=== PATIENT | female | born 1945 | race Caucasian/White ===

== ENCOUNTER 2024-01-20 11:48 | Inpatient (IN) ==
[2024-01-20 12:37] LABS: HCO3 VBG 27 mmol/L; Oxygen Saturation VBG < 60.0 %; PCO2 VBG 48 mmHg (38-50); PO2 VBG 21 mmHg; pH VBG 7.36 (7.36-7.41)
--- NOTE | 2024-01-20 12:48 | XRay Report ---
XR chest 1V portable CLINICAL HISTORY: Sepsis TECHNIQUE: Single frontal radiograph of the chest was obtained. Comparison: None available at the time of this dictation. FINDINGS: No lines and tubes are seen. The cardiomediastinal silhouette is normal. The lungs are clear. No evid ence of pleural effusion or pneumothorax. IMPRESSION: No acute chest disease. ACT 112: Negative or not required by law. Electronically signed by: Toby Marcial M.D. 01/20/2024 12:46 PM
--- NOTE | 2024-01-20 12:51 | XRay Report ---
SINGLE VIEW PELVIS CLINICAL HISTORY: Fall. Left hip pain. FINDINGS: An AP, portable, supine view of the pelvis is obtained. No prior studies are available for comparison at the time of dictation. The skeletal structures are osteopenic. No acute fracture is esteban tanesha identified. There is an age indeterminant impacted subcapital fracture of the left proximal femu r which is transfixed by 3 cortical lag screws. The right proximal femur and bony pelvis appear intac t. Mild arthritic change and joint space narrowing is seen in the hips. Sclerotic change is seen in t he sacroiliac joints and pubic symphysis. The overlying soft tissues are normal as visualized. IMPRESSION: 1. No acute fracture is clearly identified. 2. Age indeterminant impacted subcapital fracture of the left proximal femur status post internal fix ation. Correlate clinically. Electronically signed by: Justino Juarez M.D. 01/20/2024 12:49 PM
--- NOTE | 2024-01-20 13:01 | CT Scan Report ---
CT SCAN OF THE BRAIN WITHOUT IV CONTRAST CLINICAL HISTORY: Change in mental status. COMPARISON STUDY: No priors. TECHNIQUE: Unenhanced axial CT scan of the brain is performed from the vertex to the skull base. A do se lowering technique was utilized adhering to the principles of ALARA. FINDINGS: Brain parenchyma: There is age-related involutional change noting moderate to advanced subcortical an d periventricular microangiopathic disease. There is no hemorrhage, mass effect, or evidence of acute territorial ischemia by CT criteria. Shukla-white matter differentiation is preserved. No extra-axial fluid collection is seen. Ventricles, sulci, cisterns: Prominent secondary to involutional change. Intracranial vasculature: There is atherosclerotic calcification of the cavernous carotid and vertebr al arteries. Calvarium: The skeletal structures are osteopenic. No depressed calvarial fracture is seen. Soft tissues: There is a left posterior parietal scalp hematoma at the vertex. Sinuses and mastoids: The visualized paranasal sinuses are clear. The mastoid air cells are well pneu matized. Cerumen is noted in the external auditory canals. Orbits: The bony orbits are grossly intact. There are bilateral ocular lens implants. There has been banding of the left ocular globe. IMPRESSION: 1. There is no hemorrhage, mass effect, or evidence of acute territorial ischemia by CT criteria. 2. Scalp hematoma at the vertex. ACT 112: Negative or not required by law. Electronically signed by: Justino Juarez M.D. 01/20/2024 1:00 PM
[2024-01-20 13:02] LABS: Basophils # (auto) 0.07 K/uL (0.00-0.20); Basophils % (auto) 0.7 %; Eosinophils # (auto) 0.13 K/uL (0.00-0.50); Eosinophils % (auto) 1.3 %; Hematocrit (blood only) 39.2 % (37.0-47.0); Hemoglobin 13.1 g/dl (12.0-16.0); Immature Granulocytes # (auto) 0.03 K/uL (0.01-0.20); Immature Granulocytes % (auto) 0.3 %; Lymphocytes # (auto) 1.42 K/uL (1.20-3.40); Lymphocytes % (auto) 14.3 %; Mean Corpuscular Hemoglobin 30.1 pg (25.0-34.0); Mean Corpuscular Hgb Conc 33.4 g/dL (32.0-36.0); Mean Corpuscular Volume 90.1 fL (80.0-100.0); Mean Platelet Volume 10.2 fL (9.4-12.4); Monocytes # (auto) 0.65 K/uL (0.11-0.59); Monocytes % (auto) 6.5 %; Neutrophils # (auto) 7.63 K/uL (1.40-6.50); Neutrophils % (auto) 76.9 %; Platelet Count 344 K/uL (130-400); RDW Coefficient of Variation 12.2 % (11.5-14.5); RDW Standard Deviation 39.8 fL (36.4-46.3); Red Blood Count 4.35 M/uL (4.20-5.40); White Blood Count 9.93 K/ul (4.8-10.8)
--- NOTE | 2024-01-20 13:05 | CT Scan Report ---
CT SCAN OF THE CERVICAL SPINE CLINICAL HISTORY: Trauma. Fall. COMPARISON STUDY: No priors. TECHNIQUE: CT scan of the cervical spine is performed from the skull base to the upper thoracic spine . Images are reviewed in the axial, sagittal, and coronal planes. IV contrast was not administered fo r this examination. A dose lowering technique was utilized adhering to the principles of ALARA. CT DOSE: 1026.59 mGy.cm FINDINGS: Skeletal structures: The skeletal structures are osteopenic. There is no evidence of fracture or subl uxation involving the cervical spine. Vertebral body height is maintained. There is minimal anteroli sthesis at C3-C4. Alignment is otherwise preserved. There is straightening of the cervical lordosis. Anterior osteophytes are seen throughout. The odontoid process and lateral masses are intact. The shane antoaxial articulation is preserved noting advanced productive degenerative change. The spinous proce sses appear intact. There is moderate multilevel cervical spondylosis. Uncovertebral and facet arthro chery contribute to neural foraminal narrowing at several levels. Intervertebral discs: There is moderate disc space narrowing at C4-C5, C5-C6, and C6-C7. Central canal: Posterior disc osteophyte complexes at C4-C5, C5-C6, and C6-C7 may contribute to acqui red compromising the central canal. Soft tissues: The prevertebral and paraspinous soft tissues are within normal limits. There is athero sclerotic calcification of the carotid bulbs. Calvarium: The visualized calvarium at the skull base appears intact. Brain parenchyma: Partially visualized brain parenchyma at the skull base is within normal limits. Sinuses and mastoids: The visualized paranasal sinuses are clear. The mastoid air cells are well pneu matized. Cerumen is noted in the external auditory canals. Lung apices: Clear as visualized. IMPRESSION: 1. There is no evidence of fracture or subluxation involving the cervical spine. 2. Osteopenia and spondylotic change as above. ACT 112: Negative or not required by law. Electronically signed by: Justino Juarez M.D. 01/20/2024 1:04 PM
[2024-01-20 13:27] LABS: Alanine Aminotransferase 21 U/L (7-52); Albumin Level 4.2 gm/dl (3.4-5.0); Alkaline Phosphatase 114 U/L (34-104); Anion Gap 8 (3-11); Aspartate Aminotransferase 25 U/L (13-39); BUN Creatinine Ratio 45.8 (10-20); Bilirubin,Total 0.7 mg/dl (0.2-1.0); Blood Urea Nitrogen 33 mg/dl (6-23); Calcium 9.6 mg/dl (8.6-10.3); Carbon Dioxide 27 mmol/L (21-32); Chloride 104 mmol/L (98-107); Creatinine Clr Calc Pharmacy 50.7 ml/min; Est GFR (African American) 92.3 ml/min; Est GFR (Non-African American) 79.7 ml/min; Glucose 90 mg/dl (70-99(Fasting)); Magnesium 2.3 mg/dl (1.7-2.4); Potassium 4.2 mmol/L (3.5-5.1); Sodium 139 mmol/L (136-145); Troponin I High Sensitivity 11.3 pg/ml (0-14)
[2024-01-20 13:29] LABS: INR 1.1 (0.9-1.1); Partial Thromboplastin Ratio 0.9; Partial Thromboplastin Time 25 Seconds (21-31); Prothrombin Time 11.6 Seconds (9.0-12.0)
--- NOTE | 2024-01-20 13:48 | Emergency Department Note ---
History of Present Illness General Chief complaint: Confusion Stated complaint: CONFUSION Time Seen by Provider: 01/20/24 12:08 Source: patient and family (Daughter at bedside) History of Present Illness Provider complaint: Altered mental status weakness Onset (ago): day(s) 2 78-year-old female presents emergency department for altered mental status and weakness. Patient daughter reports that the patient recently had a hip replacement done 2 weeks ago status post fall. She reports that yesterday after being discharged from rehab the patient started having slurred speech and right upper extremity weakness. She states that she took her to the hospital where they did testing make sure she did not have a stroke diagnosed with UTI. Daughter reports that they got the patient home last night and then earlier today she started having difficulty walking, moving her right upper extremity, and having slurred speech again so she brought her to this hospital. Home Medications Medication Instructions Recorded Confirmed Type acetaminophen 500 mg tablet 500 mg PO Q6H 01/20/24 01/20/24 History aspirin 81 mg tablet,delayed 81 mg PO BID 01/20/24 01/20/24 History release cefdinir 300 mg capsule 300 mg PO BID 01/20/24 01/20/24 History donepezil 5 mg tablet 5 mg PO HS 01/20/24 01/20/24 History lisinopril 5 mg tablet 2.5 mg PO DAILY 01/20/24 01/20/24 History memantine 10 mg tablet 10 mg PO BID 01/20/24 01/20/24 History rosuvastatin 5 mg tablet 5 mg PO DAILY 01/20/24 01/20/24 History Allergies Allergy/AdvReac Type Severity Reaction Status Date / Time No Known Allergies Allergy Unverified 01/20/24 14:30 Past Med/Surg History Problem List (Updated 01/20/24 @ 17:01 by Jorge Monaco MD) Encephalopathy acute Memory problem HTN (hypertension) Dyslipidemia Surgical History (Updated 01/20/24 @ 14:56 by Silvia Ward PA-C) History of cataract surgery History of hip surgery Left hip fracture repair Family History (Updated 01/20/24 @ 14:57 by Silvia Ward PA-C) Mother Dementia Daughter Dyslipidemia Social History (Updated 01/20/24 @ 14:57 by Silvia Ward PA-C) Smoking Status: Never smoker Second Hand Exposure: No; Do You Dip or Chew Tobacco: No; Tobacco Cessation Education Requested by Patient: No Hx Alcohol Use: No Hx Substance Use: No Preferred Language: Persian Communication Ability: Impaired Faucet Polisher Required: No Beliefs That Will Affect Care: None Current Living Situation: Spouse and Family Other Information That Helps Us Care for You: No Feels Safe at Home: Yes Safety Concerns: Feels Safe At This Time Assistive Devices: Walker Physical Exam Vital Signs Vital Signs - 24 hr 01/20/24 11:51 01/20/24 12:10 01/20/24 12:15 Temperature 36.2 C L Temperature Source Temporal Artery Scan Pulse Rate 76 74 Pulse Rate [Finger] Pulse Rate from SpO2 Sensor Pulse Rhythm [Finger] Pulse Strength [Finger] Respiratory Rate 76 H Respiratory Effort / Characteristics Non-Labored Spontaneous Respiratory Depth Normal Respiratory Pattern Regular Blood Pressure 136/66 Blood Pressure [Left Arm] Blood Pressure Mean 89 Blood Pressure Mean [Left Arm] Pulse Oximetry 96 Oxygen Delivery Method Room Air Room Air Sepsis Recent Fever Within 48 Hours No Sepsis New/Unexplained Change in Mental Status N/A Sepsis Action Taken by Nursing No Action Required 01/20/24 12:27 01/20/24 12:30 01/20/24 12:30 Temperature Temperature Source Pulse Rate 58 L 61 Pulse Rate [Finger] Pulse Rate from SpO2 Sensor Pulse Rhythm [Finger] Pulse Strength [Finger] Respiratory Rate 19 Respiratory Effort / Characteristics Respiratory Depth Respiratory Pattern Blood Pressure 117/80 Blood Pressure [Left Arm] Blood Pressure Mean 93 Blood Pressure Mean [Left Arm] Pulse Oximetry Oxygen Delivery Method Room Air Sepsis Recent Fever Within 48 Hours Sepsis New/Unexplained Change in Mental Status Sepsis Action Taken by Nursing 01/20/24 12:30 01/20/24 12:39 01/20/24 13:00 Temperature Temperature Source Pulse Rate 70 81 Pulse Rate [Finger] Pulse Rate from SpO2 Sensor Pulse Rhythm [Finger] Pulse Strength [Finger] Respiratory Rate 22 23 Respiratory Effort / Characteristics Respiratory Depth Respiratory Pattern Blood Pressure 133/59 L Blood Pressure [Left Arm] Blood Pressure Mean 84 Blood Pressure Mean [Left Arm] Pulse Oximetry Oxygen Delivery Method Sepsis Recent Fever Within 48 Hours Sepsis New/Unexplained Change in Mental Status Sepsis Action Taken by Nursing 01/20/24 13:21 01/20/24 13:27 01/20/24 13:30 Temperature Temperature Source Pulse Rate 65 63 Pulse Rate [Finger] 67 Pulse Rate from SpO2 Sensor 63 64 Pulse Rhythm [Finger] Regular Pulse Strength [Finger] Normal Respiratory Rate 20 18 15 Respiratory Effort / Characteristics Non-Labored Spontaneous Respiratory Depth Normal Respiratory Pattern Blood Pressure Blood Pressure [Left Arm] 133/59 L Blood Pressure Mean Blood Pressure Mean [Left Arm] 83 Pulse Oximetry 99 98 98 Oxygen Delivery Method Room Air Sepsis Recent Fever Within 48 Hours Sepsis New/Unexplained Change in Mental Status Sepsis Action Taken by Nursing 01/20/24 13:30 01/20/24 13:30 01/20/24 13:51 Temperature Temperature Source Pulse Rate 58 L Pulse Rate [Finger] Pulse Rate from SpO2 Sensor 57 L Pulse Rhythm [Finger] Pulse Strength [Finger] Respiratory Rate 16 Respiratory Effort / Characteristics Respiratory Depth Respiratory Pattern Blood Pressure 153/60 H 153/60 H Blood Pressure [Left Arm] Blood Pressure Mean 102 102 Blood Pressure Mean [Left Arm] Pulse Oximetry 98 Oxygen Delivery Method Sepsis Recent Fever Within 48 Hours Sepsis New/Unexplained Change in Mental Status Sepsis Action Taken by Nursing 01/20/24 14:01 Temperature Temperature Source Pulse Rate Pulse Rate [Finger] Pulse Rate from SpO2 Sensor Pulse Rhythm [Finger] Pulse Strength [Finger] Respiratory Rate Respiratory Effort / Characteristics Respiratory Depth Respiratory Pattern Blood Pressure 139/61 Blood Pressure [Left Arm] Blood Pressure Mean 77 Blood Pressure Mean [Left Arm] Pulse Oximetry Oxygen Delivery Method Sepsis Recent Fever Within 48 Hours Sepsis New/Unexplained Change in Mental Status Sepsis Action Taken by Nursing Physical Exam HENT: Exam performed. -Head: Hematoma and swelling over the crown of the head. -Right Ear: External ear normal. No mastoid erythema. Shi sign negative. -Left Ear: External ear normal. No mastoid erythema. Shi sign negative. -Mouth/Throat: The oropharynx is clear and moist. No trismus in the jaw. No dental abscesses or uvula swelling. No oropharyngeal exudate or tonsillar abscesses. EYES: Conjunctivae and EOM are normal. Pupils are equal, round, and reactive to light. Right eye exhibits no discharge. Left eye exhibits no discharge. No scleral icterus. NECK: Normal range of motion. Neck supple. No JVD present. No spinous process tenderness present. Ecchymosis over the left lateral neck and trapezial area which the daughter reports is from a fall a few weeks ago. CV: Normal rate, regular rhythm, normal heart sounds and intact distal pulses. There is no peripheral edema. Palpable radial pulses bue. PULM/CHEST: Effort normal and breath sounds normal. No respiratory distress. No stridor. She has no wheezes. She has no rales. ABD: The abdomen is soft. There is no tenderness. There is no rebound, no guarding. MUSC/SKEL: Pelvis stable. Surgical incision over the left hip appears clean and dry with no discharge or bleeding. There is minimal ecchymosis around the area. NEURO: She has normal strength. No cranial nerve deficit or sensory deficit. Course Course 1208: The patient was evaluated in room C9. A complete history and physical exam was performed Cardiac monitoring: An order was placed for continuous cardiac monitoring. The monitor shows a rate of 60 with sinus rhythm interpreted by me 1355: Vital signs stable. Labs and imaging within normal limits. Patient was having strokelike symptoms yesterday and today will be admitted for stroke workup. [facility] hospitalist team will be made aware. Administered Medications Clopidogrel Bisulfate (Clopidogrel Bisulfate 75 Mg Tab) 75 mg PO QAM KATHY Stop: 02/19/24 16:02 Last Admin: 01/20/24 16:50 Dose: 75 mg Documented By: MELISSA Ceftriaxone Sodium (Rocephin) 2,000 mg in 50 mls @ 100 mls/hr IV Q24H KATHY Stop: 01/25/24 16:29 Last Admin: 01/20/24 17:32 Dose: 100 mls/hr Documented By: MELISSA Discontinued Medications Aspirin (Aspirin 81 Mg Chew) 243 mg PO NOW STA Stop: 01/20/24 14:56 Last Admin: 01/20/24 17:32 Dose: 243 mg Documented By: MELISSA Medical Decision Making Laboratory Data Attestation: I reviewed the patient's lab results. 01/20/24 12:15 01/20/24 12:15 Lab Results 01/20/24 01/20/24 Range/Units 12:15 14:01 WBC 9.93 (4.8-10.8) K/ul RBC 4.35 (4.20-5.40) M/uL Hgb 13.1 (12.0-16.0) g/dl Hct 39.2 (37.0-47.0) % MCV 90.1 (80.0-100.0) fL MCH 30.1 (25.0-34.0) pg MCHC 33.4 (32.0-36.0) g/dL RDW Std Deviation 39.8 (36.4-46.3) fL RDW Coeff of Mason 12.2 (11.5-14.5) % Plt Count 344 (130-400) K/uL MPV 10.2 (9.4-12.4) fL Immature Gran % (Auto) 0.3 % Neut % (Auto) 76.9 % Lymph % (Auto) 14.3 % [place] % (Auto) 6.5 % Eos % (Auto) 1.3 % Baso % (Auto) 0.7 % Neut # (Auto) 7.63 H (1.40-6.50) K/uL Lymph # (Auto) 1.42 (1.20-3.40) K/uL [place] # (Auto) 0.65 H (0.11-0.59) K/uL Eos # (Auto) 0.13 (0.00-0.50) K/uL Baso # (Auto) 0.07 (0.00-0.20) K/uL Immature Gran # (Auto) 0.03 (0.01-0.20) K/uL PT 11.6 (9.0-12.0) Seconds INR 1.1 (0.9-1.1) APTT 25 (21-31) Seconds PTT Ratio 0.9 VBG pH 7.36 (7.36-7.41) VBG pCO2 48 (38-50) mmHg VBG pO2 21 mmHg VBG HCO3 27 mmol/L VBG O2 Saturation < 60.0 % VBG Base Excess 1.0 mEq/L Sodium 139 (136-145) mmol/L Potassium 4.2 (3.5-5.1) mmol/L Chloride 104 (98-107) mmol/L Carbon Dioxide 27 (21-32) mmol/L Anion Gap 8 (3-11) BUN 33 H (6-23) mg/dl Creatinine 0.72 (0.6-1.2) mg/dl Est Cr Clr Drug Dosing 50.7 ml/min Est GFR ( Amer) 92.3 ml/min Est GFR (Non-Af Amer) 79.7 ml/min BUN/Creatinine Ratio 45.8 H (10-20) Glucose 90 (70-99(Fasting)) mg/dl Lactate 1.1 (0.4-2.0) mmol/L Calcium 9.6 (8.6-10.3) mg/dl Magnesium 2.3 (1.7-2.4) mg/dl Total Bilirubin 0.7 (0.2-1.0) mg/dl Direct Bilirubin TNP AST 25 (13-39) U/L ALT 21 (7-52) U/L Alkaline Phosphatase 114 H (34-104) U/L Ammonia 19.0 (18-72) umol/L Troponin I High Sens 11.3 (0-14) pg/ml Total Protein 7.0 (6.0-8.3) gm/dl Albumin 4.2 (3.4-5.0) gm/dl Procalcitonin 0.02 (0-0.5) ng/ml Urine Color Dark Yellow Urine Appearance Cloudy A (Clear) Urine pH 5.5 (4.5-7.5) Ur Specific [place] 1.032 H (1.000-1.030) Urine Protein 1+ H (Negative) Urine Glucose (UA) Negative (Negative) Urine Ketones 2+ H (Negative) Urine Blood Negative (Negative) Urine Nitrite Negative (Negative) Urine Bilirubin 1+ H (Negative) Urine Urobilinogen Negative (Negative) Ur Leukocyte Esterase Trace H (Negative) Urine WBC (Auto) 11-20 H (0-5) /hpf Urine RBC (Auto) 0-2 (0-2) /hpf U Hyaline Cast (Auto) 0-2 (0-2) /lpf U Epithel Cells (Auto) >20 H (0-2) /hpf Urine Bacteria (Auto) 3+ H (None Seen) Imaging Data Radiologist's Impression: Chest X-Ray 01/20/24 12:09 XR chest 1V portable CLINICAL HISTORY: Sepsis TECHNIQUE: Single frontal radiograph of the chest was obtained. Comparison: None available at the time of this dictation. FINDINGS: No lines and tubes are seen. The cardiomediastinal silhouette is normal. The lungs are clear. No evidence of pleural effusion or pneumothorax. IMPRESSION: No acute chest disease. ACT 112: Negative or not required by law. Electronically signed by: Toby Marcial M.D. 01/20/2024 12:[address] 01/20/24 12:10 CT SCAN OF THE BRAIN WITHOUT IV CONTRAST CLINICAL HISTORY: Change in mental status. COMPARISON STUDY: No priors. TECHNIQUE: Unenhanced axial CT scan of the brain is performed from the vertex to the skull base. A dose lowering technique was utilized adhering to the principles of ALARA. FINDINGS: Brain parenchyma: There is age-related involutional change noting moderate to advanced subcortical and periventricular microangiopathic disease. There is no hemorrhage, mass effect, or evidence of acute territorial ischemia by CT criteria. Shukla-white matter differentiation is preserved. No extra-axial fluid collection is seen. Ventricles, sulci, cisterns: Prominent secondary to involutional change. Intracranial vasculature: There is atherosclerotic calcification of the cavernous carotid and vertebral arteries. Calvarium: The skeletal structures are osteopenic. No depressed calvarial fracture is seen. Soft tissues: There is a left posterior parietal scalp hematoma at the vertex. Sinuses and mastoids: The visualized paranasal sinuses are clear. The mastoid air cells are well pneumatized. Cerumen is noted in the external auditory canals. Orbits: The bony orbits are grossly intact. There are bilateral ocular lens implants. There has been banding of the left ocular globe. IMPRESSION: 1. There is no hemorrhage, mass effect, or evidence of acute territorial ischemia by CT criteria. 2. Scalp hematoma at the vertex. ACT 112: Negative or not required by law. Electronically signed by: Justino Juarez M.D. 01/20/2024 1:[address] 01/20/24 12:27 CT SCAN OF THE CERVICAL SPINE CLINICAL HISTORY: Trauma. Fall. COMPARISON STUDY: No priors. TECHNIQUE: CT scan of the cervical spine is performed from the skull base to the upper thoracic spine. Images are reviewed in the axial, sagittal, and coronal planes. IV contrast was not administered for this examination. A dose lowering technique was utilized adhering to the principles of ALARA. CT DOSE: 1026.59 mGy.cm FINDINGS: Skeletal structures: The skeletal structures are osteopenic. There is no evidence of fracture or subluxation involving the cervical spine. Vertebral body height is maintained. There is minimal anterolisthesis at C3-C4. Alignment is otherwise preserved. There is straightening of the cervical lordosis. Anterior osteophytes are seen throughout. The odontoid process and lateral masses are intact. The atlantoaxial articulation is preserved noting advanced productive degenerative change. The spinous processes appear intact. There is moderate multilevel cervical spondylosis. Uncovertebral and facet arthropathy contribute to neural foraminal narrowing at several levels. Intervertebral discs: There is moderate disc space narrowing at C4-C5, C5-C6, and C6-C7. Central canal: Posterior disc osteophyte complexes at C4-C5, C5-C6, and C6-C7 may contribute to acquired compromising the central canal. Soft tissues: The prevertebral and paraspinous soft tissues are within normal limits. There is atherosclerotic calcification of the carotid bulbs. Calvarium: The visualized calvarium at the skull base appears intact. Brain parenchyma: Partially visualized brain parenchyma at the skull base is within normal limits. Sinuses and mastoids: The visualized paranasal sinuses are clear. The mastoid air cells are well pneumatized. Cerumen is noted in the external auditory canals. Lung apices: Clear as visualized. IMPRESSION: 1. There is no evidence of fracture or subluxation involving the cervical spine. 2. Osteopenia and spondylotic change as above. ACT 112: Negative or not required by law. Electronically signed by: Justino Juarez M.D. 01/20/2024 1:04 PM Pelvis X-Ray 01/20/24 12:27 SINGLE VIEW PELVIS CLINICAL HISTORY: Fall. Left hip pain. FINDINGS: An AP, portable, supine view of the pelvis is obtained. No prior studies are available for comparison at the time of dictation. The skeletal structures are osteopenic. No acute fracture is clearly identified. There is an age indeterminant impacted subcapital fracture of the left proximal femur which is transfixed by 3 cortical lag screws. The right proximal femur and bony pelvis appear intact. Mild arthritic change and joint space narrowing is seen in the hips. Sclerotic change is seen in the sacroiliac joints and pubic symphysis. The overlying soft tissues are normal as visualized. IMPRESSION: 1. No acute fracture is clearly identified. 2. Age indeterminant impacted subcapital fracture of the left proximal femur status post internal fixation. Correlate clinically. Electronically signed by: Justino Juarez M.D. 01/20/2024 12:49 PM ECG Data Attestation: I personally reviewed and interpreted this ECG as follows: Rate (beats per minute): 64 Rhythm: + normal sinus ECG Intervals/blocks: + Normal QRS, + Normal FL and + Normal QT-c ECG ST segments: + Normal ST segments [facility] Narrative 1208: The patient was evaluated in room C9. A complete history and physical exam was performed Cardiac monitoring: An order was placed for continuous cardiac monitoring. The monitor shows a rate of 60 with sinus rhythm interpreted by me 1355: Vital signs stable. Labs and imaging within normal limits. Patient was having strokelike symptoms yesterday and today will be admitted for stroke workup. [facility] Hospitalist team will be made aware. Impression & Plan Stroke-like symptoms Discharge Plan Visit Data Chief Complaint: Confusion Stated Complaint: CONFUSION ED Provider: Moise Mancuso Discharge Problem: Stroke-like symptoms Patient Disposition: Admitted As Inpatient Discharge Instructions Interventions: ED Discharge Assessment Last Done: 01/20/24 14:43
--- NOTE | 2024-01-20 14:15 | History & Physical Report ---
Date of Service January 20, 2024 Assessment & Plan (1) Stroke-like symptoms: Plan: Patient is 78 year old female with PMH HTN, dyslipidemia, memory problems presented to ER with c/o stroke like symptoms with slurred speech and RUE weakness yesterday. Evaluated in [facility] ER and had resolution of symptoms with reported unremarkable workup. Today reported episode slurred speech and difficulty ambulating CT head: There is no hemorrhage, mass effect, or evidence of acute territorial ischemia by CT criteria. Scalp hematoma at the vertex. CT c-spine: no acute fracture No significant electrolyte abnormality. Normal troponin and ammonia DDx: TIA, CVA, Encephalopathy ?UTI, concussion syndrome from recent fall and head injury Tele to monitor for arrhythmias Lipid panel, A1C, TSH in am CTA head and neck MRI brain Echo Fall and aspiration precautions PT/OT consult Continue rosuvastatin, may need to consider increasing dose On aspirin 81mg BID currently for post op DVT prophylaxis per ortho. Will hold BID dosing and dose daily and start Plavix 75mg daily Neurology consult (2) Abnormal urinalysis: Plan: UA: ?contaminant vs UTI Denies urinary symptoms, flank pain, fever/chills Urine culture pending Rocephin for now and follow culture (3) HTN (hypertension): Plan: Recently started on lisinopril 2.5mg daily during rehab stay Monitor BP Continue lisinopril (4) Dyslipidemia: Plan: Continue rosuvastatin (5) Memory problem: Plan: Reported ongoing memory problems. No formal testing reported per daughter Continue memantine, donepezil Frequent reorientation. Monitor for delirium (6) Recent fracture of hip: Plan: 01/06/24 reported fall and left proximal femur fracture. S/P repair by Dr Ford at [facility] Went to rehab at [facility] and discharged on 01/19/24. Walking with walker. Denies any recurrent falls Pelvis Xray: No acute fracture is clearly identified. Age indeterminant impacted subcapital fracture of the left proximal femur status post internal fixation. Fall precautions Denies narcotic pain med. Using Tylenol prn and will continue PT/OT eval DVT Prophylaxis Heparin SQ Admit med/tele Full Code as per discussion with patient. Patients daughter states patient's and other family will continue to discuss code status Follows with [facility]OPE[facility] Rubio for routine care Pt was seen and care coordinated with Dr Cisneros. See addendum I spent a total of 78 minutes reviewing notes, outpatient records, labs, medication, coordinating, documenting and providing care for this patient excluding time spent in the performance of separately billed services. History of Present Illness Chief Complaint: Stroke like symptoms Primary Care Provider: Kieran Mendoza DO Patient is 78 year old female with PMH HTN, dyslipidemia, memory problems presented to ER with c/o stroke like symptoms. History obtained from patient as well as patient's daughter. Patient's daughter states patient has been having ongoing memory issues but has refused formal neuropsych testing. PCP has started patient on memantine and donezepil for the last several months. Patient's daughter states 2 weeks ago patient was in her kitchen when had fall onto left hip and hit her posterior head. She was seen at [facility] for left femur fracture and had surgical repair. States was discharged from [facility] to [facility] for rehab. Reports was doing well in rehab and was ambulating with use of walker. She was discharged home yesterday. Daughter states initially patient seemed to be doing well at home and was ambulating throughout the house. States later in the day attempted to have her walk up stairs to second floor and patient was unable to do so so patient's daughter was trying to get hospital bed for first floor. Around 3 PM yesterday patient's daughter states patient was sleeping and when she awoke she seemed a little bit confused and had noted mumbling and slurred speech. She reports patient had right arm weakness. She called EMS and patient was taken to [facility]. Patient's daughter reports had workup there that she states was unremarkable for stroke. Patient was able to ambulate in ER and was discharged home. Reports that this morning upon awakening patient seemed to have some slurred speech again. States she had difficulty ambulating through her house and seem to have generalized bilateral lower extremity weakness. She brought patient to ER for further evaluation today. Daughter feels her speech is back to normal. Daughter reports patient seems to be at her baseline mental status currently. Reports she often mixes up the names of her daughters and did have increased confusion while hospitalized recently. States has noticed decreased appetite over past several months. Denies fever/chills, diaphoresis, N/V/D/C, LOVING, dizziness, syncope, vision changes, neck pain, CP, SOB, orthopnea, palpitations, cough, sore throat, rhinorrhea, abdominal pain, paresthesias, extremity weakness, extremity edema, rashes, dysuria, hematuria, urinary frequency. In ER no further slurred speech. Allergies Allergy/AdvReac Type Severity Reaction Status Date / Time No Known Allergies Allergy Unverified 01/20/24 14:30 Home Medications Medication Instructions Recorded Confirmed Type acetaminophen 500 mg tablet 500 mg PO Q6H 01/20/24 01/20/24 History aspirin 81 mg tablet,delayed 81 mg PO BID 01/20/24 01/20/24 History release cefdinir 300 mg capsule 300 mg PO BID 01/20/24 01/20/24 History donepezil 5 mg tablet 5 mg PO HS 01/20/24 01/20/24 History lisinopril 5 mg tablet 2.5 mg PO DAILY 01/20/24 01/20/24 History memantine 10 mg tablet 10 mg PO BID 01/20/24 01/20/24 History rosuvastatin 5 mg tablet 5 mg PO DAILY 01/20/24 01/20/24 History Past Med/Surg History Problem List (Updated 01/20/24 @ 18:11 by Silvia Ward PA-C) Recent fracture of hip Abnormal urinalysis Stroke-like symptoms Encephalopathy acute Memory problem HTN (hypertension) Dyslipidemia Surgical History (Updated 01/20/24 @ 14:56 by Silvia Ward PA-C) History of cataract surgery History of hip surgery Left hip fracture repair Family History (Updated 01/20/24 @ 14:57 by Silvia Ward PA-C) Mother Dementia Daughter Dyslipidemia Social History (Updated 01/20/24 @ 14:57 by Silvia Ward PA-C) Smoking Status: Never smoker Second Hand Exposure: No; Do You Dip or Chew Tobacco: No; Tobacco Cessation Education Requested by Patient: No Hx Alcohol Use: No Hx Substance Use: No Preferred Language: [place] Communication Ability: Impaired Security Flex Officer Required: No Beliefs That Will Affect Care: None Current Living Situation: Spouse and Family Other Information That Helps Us Care for You: No Feels Safe at Home: Yes Safety Concerns: Feels Safe At This Time Assistive Devices: Walker Review of Systems Review of Systems: All systems reviewed & are unremarkable except as noted in HPI & below Physical Exam Physical Exam: General: no acute distress, pleasant elderly female, WDWN Head: normocephalic, atraumatic Eyes: pupils approximately 2-3mm size bilaterally PERRL, EOM's intact, conjunctiva non-injected, anicteric ENT: normal inspection external ears, nose, mucous membranes moist Neck: supple, trachea midline, non-tender Lungs: clear, no respiratory distress, no wheezing/rhonchi/rales CV: RRR, no murmur, no JVD, no pretibial edema Abd: normal BS, soft, non-tender Ext: no cyanosis, no calf tenderness, able to flex and extend and internally and externally rotate bilateral hips without pain. no erythema noted left proximal leg Neuro: Alert, oriented to person, knows in hospital thinks its Dejuan, Knows daughter but says wrong daughter name (daughter reports this is baseline mixing up children's names) x 3, normal affect. Takes several prompting to perform CN testing. visual ellis appear intact. No nystagmus. facial sensation is intact and symmetric, face is strong and symmetric, hearing grossly intact, soft palate elevates symmetrically, no dysarthria, shoulder shrug intact, tongue is midline, normal movement, no fasciculations. 4/5 strength bilateral upper and lower extremities Skin: warm, dry, +yellow/green purple ecchymosis bilateral and posterior neck, +multiple yellow/purple ecchymosis left leg Results & Data Results & Data Vital Signs (Past 12 Hours) Vital Signs Temp Pulse Pulse Resp BP BP Pulse Ox 01/20/24 13:30 153/60 H 01/20/24 13:30 63 15 98 01/20/24 13:27 65 18 98 01/20/24 13:21 67 20 133/59 L 99 01/20/24 13:00 133/59 L 01/20/24 12:39 81 23 01/20/24 12:30 70 22 01/20/24 12:30 117/80 01/20/24 12:30 61 01/20/24 12:27 58 L 19 01/20/24 12:15 74 01/20/24 12:10 01/20/24 11:51 36.2 C L 76 76 H 136/66 96 O2 Del Method 01/20/24 13:30 01/20/24 13:30 01/20/24 13:27 01/20/24 13:21 Room Air 01/20/24 13:00 01/20/24 12:39 01/20/24 12:30 01/20/24 12:30 01/20/24 12:30 Room Air 01/20/24 12:27 01/20/24 12:15 01/20/24 12:10 Room Air 01/20/24 11:51 Room Air Laboratory Results Short CBC 01/20/24 Range/Units 12:15 WBC 9.93 (4.8-10.8) K/ul Hgb 13.1 (12.0-16.0) g/dl Hct 39.2 (37.0-47.0) % Plt Count 344 (130-400) K/uL BMP 01/20/24 12:15 Sodium 139 Potassium 4.2 Chloride 104 Carbon Dioxide 27 BUN 33 H Creatinine 0.72 Glucose 90 Calcium 9.6 Liver Function 01/20/24 Range/Units 12:15 Total Bilirubin 0.7 (0.2-1.0) mg/dl Direct Bilirubin TNP AST 25 (13-39) U/L ALT 21 (7-52) U/L Alkaline Phosphatase 114 H (34-104) U/L Albumin 4.2 (3.4-5.0) gm/dl Urine 01/20/24 Range/Units 14:01 Urine Color Dark Yellow Urine Appearance Cloudy A (Clear) Urine pH 5.5 (4.5-7.5) Ur Specific [place] 1.032 H (1.000-1.030) Urine Protein 1+ H (Negative) Urine Glucose (UA) Negative (Negative) Diagnostic Findings Chest X-Ray 01/20/24 12:09 XR chest 1V portable CLINICAL HISTORY: Sepsis TECHNIQUE: Single frontal radiograph of the chest was obtained. Comparison: None available at the time of this dictation. FINDINGS: No lines and tubes are seen. The cardiomediastinal silhouette is normal. The l ungs are clear. No evidence of pleural effusion or pneumothorax. IMPRESSION: No acute chest disease. ACT 112: Negative or not required by law. Electronically signed by: Toby Marcial M.D. 01/20/2024 12:[address] 01/20/24 12:10 CT SCAN OF THE BRAIN WITHOUT IV CONTRAST CLINICAL HISTORY: Change in mental status. COMPARISON STUDY: No priors. TECHNIQUE: Unenhanced axial CT scan of the brain is performed from the vertex to the skull base. A dose lowering technique was utilized adhering to the principles of ALARA. FINDINGS: Brain parenchyma: There is age-related involutional change noting moderate to advanced subcortical and periventricular microangiopathic disease. There is no hemorrhage, mass effect, or evidence of acute territorial ischemia by CT criteria. Shukla-white matter differentiation is preserved. No extra-axial fluid collection is seen. Ventricles, sulci, cisterns: Prominent secondary to involutional change. Intracranial vasculature: There is atherosclerotic calcification of the cavernous carotid and vertebral arteries. Calvarium: The skeletal structures are osteopenic. No depressed calvarial fracture is seen. Soft tissues: There is a left posterior parietal scalp hematoma at the vertex. Sinuses and mastoids: The visualized paranasal sinuses are clear. The mastoid air cells are well pneumatized. Cerumen is noted in the external auditory canals. Orbits: The bony orbits are grossly intact. There are bilateral ocular lens implants. There has been banding of the left ocular globe. IMPRESSION: 1. There is no hemorrhage, mass effect, or evidence of acute territorial ischemia by CT criteria. 2. Scalp hematoma at the vertex. ACT 112: Negative or not required by law. Electronically signed by: Justino Juarez M.D. 01/20/2024 1:[address] 01/20/24 12:27 CT SCAN OF THE CERVICAL SPINE CLINICAL HISTORY: Trauma. Fall. COMPARISON STUDY: No priors. TECHNIQUE: CT scan of the cervical spine is performed from the skull base to the upper thoracic spine. Images are reviewed in the axial, sagittal, and coronal planes. IV contrast was not administered for this examination. A dose lowering technique was utilized adhering to the principles of ALARA. CT DOSE: 1026.59 mGy.cm FINDINGS: Skeletal structures: The skeletal structures are osteopenic. There is no evidence of fracture or subluxation involving the cervical spine. Vertebral body height is maintained. There is minimal anterolisthesis at C3-C4. Alignment is otherwise preserved. There is straightening of the cervical lordosis. Anterior osteophytes are seen throughout. The odontoid process and lateral masses are intact. The atlantoaxial articulation is preserved noting advanced productive degenerative change. The spinous processes appear intact. There is moderate multilevel cervical spondylosis. Uncovertebral and facet arthropathy contribute to neural foraminal narrowing at several levels. Intervertebral discs: There is moderate disc space narrowing at C4-C5, C5-C6, and C6-C7. Central canal: Posterior disc osteophyte complexes at C4-C5, C5-C6, and C6-C7 may contribute to acquired compromising the central canal. Soft tissues: The prevertebral and paraspinous soft tissues are within normal limits. There is atherosclerotic calcification of the carotid bulbs. Calvarium: The visualized calvarium at the skull base appears intact. Brain parenchyma: Partially visualized brain parenchyma at the skull base is within normal limits. Sinuses and mastoids: The visualized paranasal sinuses are clear. The mastoid air cells are well pneumatized. Cerumen is noted in the external auditory canals. Lung apices: Clear as visualized. IMPRESSION: 1. There is no evidence of fracture or subluxation involving the cervical spine. 2. Osteopenia and spondylotic change as above. ACT 112: Negative or not required by law. Electronically signed by: Justino Juarez M.D. 01/20/2024 1:04 PM Pelvis X-Ray 01/20/24 12:27 SINGLE VIEW PELVIS CLINICAL HISTORY: Fall. Left hip pain. FINDINGS: An AP, portable, supine view of the pelvis is obtained. No prior studies are available for comparison at the time of dictation. The skeletal structures are osteopenic. No acute fracture is clearly identified. There is an age indeterminant impacted subcapital fracture of the left proximal femur which is transfixed by 3 cortical lag screws. The right proximal femur and bony pelvis appear intact. Mild arthritic change and joint space narrowing is seen in the hips. Sclerotic change is seen in the sacroiliac joints and pubic symphysis. The overlying soft tissues are normal as visualized. IMPRESSION: 1. No acute fracture is clearly identified. 2. Age indeterminant impacted subcapital fracture of the left proximal femur status post internal fixation. Correlate clinically. Electronically signed by: Justino Juarez M.D. 01/20/2024 12:49 PM Supervising Physician Co-Signing Physician Notes Attending Addendum: Case reviewed with the advanced practitioner. I have personally performed a history and physical examination on the patient. I have reviewed the advanced practitioner's documentation on the date of service referenced in note, and I agree with, and take responsibility for the plan of care. please refer to her notes for full details patient seen and examined, records reviewed by myself as well on exam, patient Seen sitting up in bed, awake and alert, oriented x 2, answering most questions appropriately States she feels fine overall Denies trouble speaking or understanding, focal weakness or numbness, or any other new neurologic symptoms no other symptoms VS noted and reviewed orientedx 2, not in distress, speaks in sentences with no effort nor accessory muscle use normal rate, regular rhythm, no murmurs clear breath sounds bilaterally non distended, soft, nontender no bipedal edema, erythema, warmth no focal neuro deficits all labs, imaging noted and reviewed ASSESSMENT AND PLAN 69-year-old female with recent hip surgery, hypertension, etc. presenting with episodes of aphasia, confusion, right upper arm weakness. TIA versus acute CVA CT head negative Proceed with stroke workup including brain MRI, CT angiogram head and neck, etc. Placed on aspirin 81 mg twice a day after surgery around 2 weeks ago Neurologist consulted, awaiting further recommendations Left hip surgery, 01/06/2024 Denies hip pain X-ray of the hip unrevealing other diagnoses and plan of care as per advanced practitioner's notes Con Cisneros MD
[2024-01-20 14:58] LABS: Appearance Urine Cloudy (Clear); Bacteria Urine Automated 3+ (None Seen); Bilirubin Urine 1+ (Negative); Blood Urine Negative (Negative); Cast Urine Automated 0-2 /lpf (0-2); Color Urine Dark Yellow; Epithelial Cell Urine Auto >20 /hpf (0-2); Glucose Urine UA Negative (Negative); Ketones Urine 2+ (Negative); Leukocyte Esterase Urine Trace (Negative); Nitrite Urine Negative (Negative); Protein Urine 1+ (Negative); RBC Urine Automated 0-2 /hpf (0-2); Specific Gravity Urine 1.032 (1.000-1.030); Urobilinogen Urine Negative (Negative); pH Urine 5.5 (4.5-7.5)
[2024-01-20] MEDS ORDERED: MAGNESIUM HYDROXIDE SUSP 30 ML UDC PO PRN (16:03)
[2024-01-20] MEDS ORDERED: PHARMACIST DISCHARGE MED REC CONSULT PRN (16:03)
[2024-01-20] MEDS ORDERED: ONDANSETRON INJ 2 MG/ML 2 ML VIAL IV PRN (16:03)
[2024-01-20] MEDS ORDERED: POLYETHYLENE (MIRALAX) 17 GM PACK PO PRN (16:03)
[2024-01-20] MEDS ORDERED: ACETAMINOPHEN 325 MG TAB PO PRN (16:03)
[2024-01-20] MEDS: CLOPIDOGREL BISULFATE 75 MG TAB PO SCH (16:50)
--- NOTE | 2024-01-20 17:04 | Neurology Consultation ---
Date of Consultation January 20, 2024 Assessment & Plan (1) Encephalopathy acute: Likely related to her UTI. The patient is noted to be on cefdinir. (2) Acute ischemic stroke: Plan Continue IV hydration and treating her UTI.. Small infarct of the left external capsule. In a patient with minimal atherosclerotic burden. Recommend to add Plavix 75 mg to aspirin 81 mg. Continue rosuvastatin. Will follow echocardiogram. Recommend a Zio patch as an outpatient Telehealth Consultation Telehealth Information Telehealth Information: I performed this visit using a real-time telehealth connection between my location and the patients location ([facility]). After connecting through interactive tele-video, patient was identified by name and date of and/or wristband check.Patient (or authorized healthcare collections representative) was informed that this was a telemedicine visit and it was being conducted confidentially over secure lines. My office door was closed and no one else was present in the room with me.Patient (or authorized healthcare collections representative) provided consent to proceed with the visit, expressed an understanding of privacy and security of the telemedicine visit, and gave permission to have a hospital collections representative in the room in order to assist with the visit and to conduct portions of the visit, as needed. I informed the patient (or authorized healthcare collections representative) that I reviewed their record and presented the opportunity for them to ask any questions regarding the visit today. The patient agreed to participate. History of Present Illness Reason for Consultation: treansient slurred speech and weakness Requesting Physician: Con Cisneros MD Attending Physician: Con Cisneros MD History of Present Illness Sheyla Smith is a 78-year-old female patient with PMH of HLP, HTN, chronic memory changes maintained on memantine and donepezil, recent fall 2 weeks ago with left femur fracture status postsurgical repair. She was doing well up and ambulating . Was doing well in rehab and was discharged home yesterday, was noted to wake up from a nap at 3 PM yesterday with apparent confusion and slurred speech in addition to right arm weakness, was transferred to the hospital where apparently a stroke workup was nonrevealing and was discharged home. This morning when the patient woke up seem to have some slurred speech again and had difficulty ambulating throughout her house with generalized bilateral extremity weakness so she was brought to [facility] for further evaluation. Upon ED evaluation the patient is reported to be back to normal. The daughter tells me that this happened again today while the patient was napping, she woke up and had significant slurred speech this lasted for about 2 minutes and improved. Upon asking the patient she reports that she is feeling fine, she is in the hospital she knows her daughter. She has been walking with a walker lately with significant dementia however is able to Take Care of her body needs prior to this fall Allergies Allergy/AdvReac Type Severity Reaction Status Date / Time No Known Allergies Allergy Unverified 01/20/24 14:30 Home Medications Medication Instructions Recorded Confirmed Type acetaminophen 500 mg tablet 500 mg PO Q6H 01/20/24 01/20/24 History aspirin 81 mg tablet,delayed 81 mg PO BID 01/20/24 01/20/24 History release cefdinir 300 mg capsule 300 mg PO BID 01/20/24 01/20/24 History donepezil 5 mg tablet 5 mg PO HS 01/20/24 01/20/24 History lisinopril 5 mg tablet 2.5 mg PO DAILY 01/20/24 01/20/24 History memantine 10 mg tablet 10 mg PO BID 01/20/24 01/20/24 History rosuvastatin 5 mg tablet 5 mg PO DAILY 01/20/24 01/20/24 History Patient History Surgical History (Updated 01/20/24 @ 14:56 by Silvia Ward PA-C) History of cataract surgery History of hip surgery Left hip fracture repair Family History (Updated 01/20/24 @ 14:57 by Silvia Ward PA-C) Mother Dementia Daughter Dyslipidemia Social History (Updated 01/20/24 @ 14:57 by Silvia Ward PA-C) Smoking Status: Never smoker Second Hand Exposure: No; Do You Dip or Chew Tobacco: No; Tobacco Cessation Education Requested by Patient: No Hx Alcohol Use: No Hx Substance Use: No Preferred Language: Nigerien Communication Ability: Effective Manager Of Employee Relations Required: No Beliefs That Will Affect Care: None Current Living Situation: Spouse and Family Other Information That Helps Us Care for You: No Feels Safe at Home: Yes Safety Concerns: Feels Safe At This Time Assistive Devices: Cane and Walker Review of Systems Cannot be reliably obtained due to dementia the daughter denies any recent illnesses or febrile fever or chills Physical Exam General Constitutional: Appearance normally developed Head and face: normocephalic and atraumatic Eyes: no ptosis, no anisocoria, and no dysconjugate gaze Respiratory: normal effort Cardiovascular: regular rhythm and regular rate Abdomen: non distended Skin: no rashes, lesions, or ulcers noted Psychiatric: normal judgement and insight, normal mood, and normal affect NEUROLOGIC EXAMINATION: Mental Status:alert, oriented to self, place, knows her daughter, with visibly impaired recent and remote memory, no slurred speech or aphasia . Cranial Nerves: CN 2 - no visual defect on confrontation and pupils round, equal, reactive to light CN 3, 4, 6 - extra-ocular movements intact and no nystagmus CN 5 - facial sensation intact CN 7 - no facial asymmetry CN 8 - sensorineural hearing loss CN 9, 10 - palate symmetric, normal gag CN 11 - good shoulder shrug CN 12 - tongue midline MOTOR: Strength was at least antigravity throughout, Pronator drift was absent and There were no abnormal movements SENSATION: intact and symmetric to pinprick, light touch, vibration and joint position GAIT: Did not attempt as she walks with a walker due to left hip fracture COORDINATION: no ataxia with finger to nose testing and heel to rodriguez testing REFLEXES: cannot assess over telemedicine Results & Data Vital Signs (Past 12 Hours) Vital Signs Temp Pulse Pulse Resp BP BP Pulse Ox 01/20/24 16:36 62 01/20/24 15:40 36.6 C 66 18 153/67 H 96 01/20/24 15:39 36.7 C 64 16 126/72 99 01/20/24 14:43 01/20/24 14:36 63 19 01/20/24 14:01 139/61 01/20/24 13:51 58 L 16 98 01/20/24 13:30 153/60 H 01/20/24 13:30 153/60 H 01/20/24 13:30 63 15 98 01/20/24 13:27 65 18 98 01/20/24 13:21 67 20 133/59 L 99 01/20/24 13:00 133/59 L 01/20/24 12:39 81 23 01/20/24 12:30 70 22 01/20/24 12:30 117/80 01/20/24 12:30 61 01/20/24 12:27 58 L 19 01/20/24 12:15 74 01/20/24 12:10 01/20/24 11:51 36.2 C L 76 76 H 136/66 96 O2 Del Method 01/20/24 16:36 01/20/24 15:40 Room Air 01/20/24 15:39 Room Air 01/20/24 14:43 Room Air 01/20/24 14:36 01/20/24 14:01 01/20/24 13:51 01/20/24 13:30 01/20/24 13:30 01/20/24 13:30 01/20/24 13:27 01/20/24 13:21 Room Air 01/20/24 13:00 01/20/24 12:39 01/20/24 12:30 01/20/24 12:30 01/20/24 12:30 Room Air 01/20/24 12:27 01/20/24 12:15 01/20/24 12:10 Room Air 01/20/24 11:51 Room Air Laboratory Results Laboratory Results - last 24 hr Abnormal lab results 01/20/24 01/20/24 01/21/24 Range/Units 12:15 14:01 06:36 Anion Gap 13 H (3-11) BUN 33 H 27 H (6-23) mg/dl Creatinine 0.58 L (0.6-1.2) mg/dl BUN/Creatinine Ratio 45.8 H 46.6 H (10-20) Glucose 69 L (70-99(Fasting)) mg/dl Alkaline Phosphatase 114 H (34-104) U/L TSH 0.249 L (0.300-4.500) uIu/ml Urine Appearance Cloudy A (Clear) Ur Specific [place] 1.032 H (1.000-1.030) Urine Protein 1+ H (Negative) Urine Ketones 2+ H (Negative) Urine Bilirubin 1+ H (Negative) Ur Leukocyte Esterase Trace H (Negative) Urine WBC (Auto) 11-20 H (0-5) /hpf U Epithel Cells (Auto) >20 H (0-2) /hpf Urine Bacteria (Auto) 3+ H (None Seen) 01/20/24 01/20/24 12:15 14:01 WBC 9.93 RBC 4.35 Hgb 13.1 Hct 39.2 MCV 90.1 MCH 30.1 MCHC 33.4 RDW Std Deviation 39.8 RDW Coeff of [place] 12.2 Plt Count 344 MPV 10.2 Immature Gran % (Auto) 0.3 Neut % (Auto) 76.9 Lymph % (Auto) 14.3 [place] % (Auto) 6.5 Eos % (Auto) 1.3 Baso % (Auto) 0.7 Neut # (Auto) 7.63 H Lymph # (Auto) 1.42 [place] # (Auto) 0.65 H Eos # (Auto) 0.13 Baso # (Auto) 0.07 Immature Gran # (Auto) 0.03 PT 11.6 INR 1.1 APTT 25 PTT Ratio 0.9 VBG pH 7.36 VBG pCO2 48 VBG pO2 21 VBG HCO3 27 VBG O2 Saturation < 60.0 VBG Base Excess 1.0 Sodium 139 Potassium 4.2 Chloride 104 Carbon Dioxide 27 Anion Gap 8 BUN 33 H Creatinine 0.72 Est Cr Clr Drug Dosing 50.7 Est GFR ( Amer) 92.3 Est GFR (Non-Af Amer) 79.7 BUN/Creatinine Ratio 45.8 H Glucose 90 Lactate 1.1 Calcium 9.6 Magnesium 2.3 Total Bilirubin 0.7 Direct Bilirubin TNP AST 25 ALT 21 Alkaline Phosphatase 114 H Ammonia 19.0 Troponin I High Sens 11.3 Total Protein 7.0 Albumin 4.2 Procalcitonin 0.02 Urine Color Dark Yellow Urine Appearance Cloudy A Urine pH 5.5 Ur Specific [place] 1.032 H Urine Protein 1+ H Urine Glucose (UA) Negative Urine Ketones 2+ H Urine Blood Negative Urine Nitrite Negative Urine Bilirubin 1+ H Urine Urobilinogen Negative Ur Leukocyte Esterase Trace H Urine WBC (Auto) 11-20 H Urine RBC (Auto) 0-2 U Hyaline Cast (Auto) 0-2 U Epithel Cells (Auto) >20 H Urine Bacteria (Auto) 3+ H Diagnostic Findings Head CTA 01/20/24 14:44 Exam(s): CTA HEAD With Contrast IV Amt: 118 ML OPTIRAY 320 EXAM: CT Angiography Head With Intravenous Contrast CLINICAL HISTORY: Reason for exam: stroke like symptoms. TECHNIQUE: Axial computed tomographic angiography images of the head with intravenous contrast. CTDI is 11.45 mGy and DLP is 412.59 mGy-cm. Automated exposure control was utilized for the study. A dose lowering technique was utilized adhering to the principles of ALARA. MIP reconstructed images were created and reviewed. CONTRAST: Patient received 118 ML OPTIRAY 320 of IV contrast COMPARISON: No relevant prior studies available. FINDINGS: The dural venous sinuses are patent. Right internal carotid artery: No acute findings. Intracranial segment is patent with no significant stenosis. No aneurysm. Right anterior cerebral artery: Unremarkable. No occlusion or significant stenosis. No aneurysm. Right middle cerebral artery: Unremarkable. No occlusion or significant stenosis. No aneurysm. Right posterior cerebral artery: Unremarkable. No occlusion or significant stenosis. No aneurysm. Right vertebral artery: Unremarkable as visualized. Left internal carotid artery: No acute findings. Intracranial segment is patent with no significant stenosis. No aneurysm. Left anterior cerebral artery: Unremarkable. No occlusion or significant stenosis. No aneurysm. Left middle cerebral artery: Unremarkable. No occlusion or significant stenosis. No aneurysm. Left posterior cerebral artery: There is an 8% stenosis of the proximal left P1 segment with normal enhancement in the distal vessel.. No aneurysm. Left vertebral artery: Unremarkable as visualized. Basilar artery: Unremarkable. No occlusion or significant stenosis. No aneurysm. IMPRESSION: There is an 80% stenosis of the proximal left P1 segment with normal enhancement of the distal vessel. Electronically signed by: Karo Espinoza MD 01/21/24 00:32 AM Neck CTA 01/20/24 14:44 Exam(s): CTA NECK With Contrast IV Amt: 118 ML OPTIRAY 320 EXAM: CT Angiography Neck With Intravenous Contrast CLINICAL HISTORY: Reason for exam: stroke like symptoms. TECHNIQUE: Routine carotid CT angiography protocol was performed with intravenous contrast. NASCET criteria using the distal ICAs for comparison were used for evaluation of stenoses. CTDI is 11.45 mGy and DLP is 412.59 mGy-cm. Automated exposure control was utilized for the study. A dose lowering technique was utilized adhering to the principles of ALARA. MIP reconstructed images were created and reviewed. CONTRAST: Patient received 118 ML OPTIRAY 320 of IV contrast COMPARISON: None. FINDINGS: VASCULATURE: Right common carotid artery: Unremarkable. No occlusion or significant stenosis. No dissection. Right internal carotid artery: Unremarkable. Extracranial segment is patent with no occlusion or significant stenosis. No dissection. Right external carotid artery: Unremarkable. No occlusion. Right vertebral artery: Unremarkable. No occlusion or significant stenosis. No dissection. Left common carotid artery: Unremarkable. No occlusion or significant stenosis. No dissection. Left internal carotid artery: Unremarkable. Extracranial segment is patent with no occlusion or significant stenosis. No dissection. Left external carotid artery: Unremarkable. No occlusion. Left vertebral artery: Unremarkable. No occlusion or significant stenosis. No dissection. NECK: Bones/joints: Unremarkable. No acute fracture. Soft tissues: Bilateral thyroid nodules. Lung apices: Clear. CAROTID STENOSIS REFERENCE USING NASCET CRITERIA: % ICA stenosis = (1 - narrowest ICA diameter/diameter of distal cervical ICA) x 100. Mild - <50% stenosis. Moderate - 50-69% stenosis. Severe - 70-94% stenosis. Near occlusion - 95-99% stenosis. Occluded - 100% stenosis. IMPRESSION: Negative CTA neck. Electronically signed by: Karo Espinoza MD 01/21/24 00:27 AM Brain MRI 01/20/24 14:45 CR Exam(s): MRI HEAD W/WO Contrast IV Amt: 5cc gadavist EXAM: MR Head Without and With Intravenous Contrast CLINICAL HISTORY: Reason for exam: stroke like symptoms. TECHNIQUE: Magnetic resonance images of the head/brain without and with intravenous contrast in multiple planes. CONTRAST: Patient received 5cc gadavist of IV contrast COMPARISON: Prior head CT from January 20, 2024. FINDINGS: Brain: There is a tiny acute ischemic injury in the left capsule without evidence of hemorrhagic transformation. Advanced nonspecific white matter changes. No mass. No hemorrhage. The flow voids of the base of the brain are intact. No evidence of abnormal enhancement. Ventricles: Mild ventriculomegaly. Bones/joints: Unremarkable. No acute fracture. Hematoma over left posterior occiput. Sinuses: Chronic ethmoid sinusitis. No acute sinusitis. Mastoid air cells: Unremarkable as visualized. No mastoid effusion. Orbits: Bilateral lens replacements. IMPRESSION: There is a tiny acute ischemic injury within the left capsule without evidence of hemorrhagic transformation. Communications: Verify Receipt Electronically signed by: Karo Espinoza MD 01/21/24 00:37 AM Chest X-Ray 01/20/24 12:09 XR chest 1V portable CLINICAL HISTORY: Sepsis TECHNIQUE: Single frontal radiograph of the chest was obtained. Comparison: None available at the time of this dictation. FINDINGS: No lines and tubes are seen. The cardiomediastinal silhouette is normal. The lungs are clear. No evidence of pleural effusion or pneumothorax. IMPRESSION: No acute chest disease. ACT 112: Negative or not required by law. Electronically signed by: Toby Marcial M.D. 01/20/2024 12:[address] 01/20/24 12:10 CT SCAN OF THE BRAIN WITHOUT IV CONTRAST CLINICAL HISTORY: Change in mental status. COMPARISON STUDY: No priors. TECHNIQUE: Unenhanced axial CT scan of the brain is performed from the vertex to the skull base. A dose lowering technique was utilized adhering to the principles of ALARA. FINDINGS: Brain parenchyma: There is age-related involutional change noting moderate to advanced subcortical and periventricular microangiopathic disease. There is no hemorrhage, mass effect, or evidence of acute territorial ischemia by CT criteria. Shukla-white matter differentiation is preserved. No extra-axial fluid collection is seen. Ventricles, sulci, cisterns: Prominent secondary to involutional change. Intracranial vasculature: There is atherosclerotic calcification of the cavernous carotid and vertebral arteries. Calvarium: The skeletal structures are osteopenic. No depressed calvarial fracture is seen. Soft tissues: There is a left posterior parietal scalp hematoma at the vertex. Sinuses and mastoids: The visualized paranasal sinuses are clear. The mastoid air cells are well pneumatized. Cerumen is noted in the external auditory canals. Orbits: The bony orbits are grossly intact. There are bilateral ocular lens implants. There has been banding of the left ocular globe. IMPRESSION: 1. There is no hemorrhage, mass effect, or evidence of acute territorial ischemia by CT criteria. 2. Scalp hematoma at the vertex. ACT 112: Negative or not required by law. Electronically signed by: Justino Juarez M.D. 01/20/2024 1:[address] 01/20/24 12:27 CT SCAN OF THE CERVICAL SPINE CLINICAL HISTORY: Trauma. Fall. COMPARISON STUDY: No priors. TECHNIQUE: CT scan of the cervical spine is performed from the skull base to the upper thoracic spine. Images are reviewed in the axial, sagittal, and coronal planes. IV contrast was not administered for this examination. A dose lowering technique was utilized adhering to the principles of ALARA. CT DOSE: 1026.59 mGy.cm FINDINGS: Skeletal structures: The skeletal structures are osteopenic. There is no evidence of fracture or subluxation involving the cervical spine. Vertebral body height is maintained. There is minimal anterolisthesis at C3-C4. Alignment is otherwise preserved. There is straightening of the cervical lordosis. Anterior osteophytes are seen throughout. The odontoid process and lateral masses are intact. The atlantoaxial articulation is preserved noting advanced productive degenerative change. The spinous processes appear intact. There is moderate multilevel cervical spondylosis. Uncovertebral and facet arthropathy contribute to neural foraminal narrowing at several levels. Intervertebral discs: There is moderate disc space narrowing at C4-C5, C5-C6, and C6-C7. Central canal: Posterior disc osteophyte complexes at C4-C5, C5-C6, and C6-C7 ma y contribute to acquired compromising the central canal. Soft tissues: The prevertebral and paraspinous soft tissues are within normal limits. There is atherosclerotic calcification of the carotid bulbs. Calvarium: The visualized calvarium at the skull base appears intact. Brain parenchyma: Partially visualized brain parenchyma at the skull base is within normal limits. Sinuses and mastoids: The visualized paranasal sinuses are clear. The mastoid air cells are well pneumatized. Cerumen is noted in the external auditory canals. Lung apices: Clear as visualized. IMPRESSION: 1. There is no evidence of fracture or subluxation involving the cervical spine. 2. Osteopenia and spondylotic change as above. ACT 112: Negative or not required by law. Electronically signed by: Justino Juarez M.D. 01/20/2024 1:04 PM Medications Administered Home Medications Medication Instructions Recorded Confirmed Last Taken acetaminophen 500 mg tablet 500 mg PO Q6H 01/20/24 01/20/24 01/20/24 aspirin 81 mg tablet,delayed 81 mg PO BID 01/20/24 01/20/24 01/20/24 release cefdinir 300 mg capsule 300 mg PO BID 01/20/24 01/20/24 Unknown donepezil 5 mg tablet 5 mg PO HS 01/20/24 01/20/24 Unknown lisinopril 5 mg tablet 2.5 mg PO DAILY 01/20/24 01/20/24 01/19/24 memantine 10 mg tablet 10 mg PO BID 01/20/24 01/20/24 01/20/24 rosuvastatin 5 mg tablet 5 mg PO DAILY 01/20/24 01/20/24 01/20/24 Active Medications Generic Name Dose Route Start Last Admin Trade Name Freq PRN Reason Stop Dose Admin Clopidogrel Bisulfate 75 mg 01/20/24 16:03 01/20/24 16:50 Clopidogrel Bisulfate 75 Mg Tab PO 02/19/24 16:02 75 mg QAM KATHY Administration
[2024-01-20] MEDS: cefTRIAXone SODIUM 2,000 MG/50 ML BAG IV SCH (17:32)
[2024-01-20] MEDS: ASPIRIN 81 MG CHEW PO STA (17:32)
[2024-01-20] MEDS: HEPARIN SOD 5,000 UNIT/0.5 ML VIAL SQ SCH (21:25)
[2024-01-20] MEDS: MEMANTINE HCL 10 MG TAB PO SCH (21:26)
[2024-01-20] MEDS: DONEPEZIL HCL 5 MG TAB PO SCH (21:26)
[2024-01-20] MEDS: OPTIRAY 320 125ml IV ONE (22:09)
[2024-01-20] MEDS: GADOBUTROL 65ML VIAL IV ONE (22:47)
--- NOTE | 2024-01-21 00:28 | CT Scan Report ---
Exam(s): CTA NECK With Contrast IV Amt: 118 ML OPTIRAY 320 EXAM: CT Angiography Neck With Intravenous Contrast CLINICAL HISTORY: Reason for exam: stroke like symptoms. TECHNIQUE: Routine carotid CT angiography protocol was performed with intravenous contrast. NASCET criteria using the distal ICAs for comparison were used for evaluation of stenoses. CTDI is 11.45 mGy and DLP is 412.59 mGy-cm. Automated exposure control was utilized for the study. A dose lowering technique was utilized adhering to the principles of ALARA. MIP reconstructed images were created and reviewed. CONTRAST: Patient received 118 ML OPTIRAY 320 of IV contrast COMPARISON: None. FINDINGS: VASCULATURE: Right common carotid artery: Unremarkable. No occlusion or significant stenosis. No dissection. Right internal carotid artery: Unremarkable. Extracranial segment is patent with no occlusion or significant stenosis. No dissection. Right external carotid artery: Unremarkable. No occlusion. Right vertebral artery: Unremarkable. No occlusion or significant stenosis. No dissection. Left common carotid artery: Unremarkable. No occlusion or significant stenosis. No dissection. Left internal carotid artery: Unremarkable. Extracranial segment is patent with no occlusion or significant stenosis. No dissection. Left external carotid artery: Unremarkable. No occlusion. Left vertebral artery: Unremarkable. No occlusion or significant stenosis. No dissection. NECK: Bones/joints: Unremarkable. No acute fracture. Soft tissues: Bilateral thyroid nodules. Lung apices: Clear. CAROTID STENOSIS REFERENCE USING NASCET CRITERIA: % ICA stenosis = (1 - narrowest ICA diameter/diameter of distal cervical ICA) x 100. Mild - <50% stenosis. Moderate - 50-69% stenosis. Severe - 70-94% stenosis. Near occlusion - 95-99% stenosis. Occluded - 100% stenosis. IMPRESSION: Negative CTA neck. Electronically signed by: Karo Espinoza MD 01/21/24 00:27 AM
--- NOTE | 2024-01-21 00:33 | CT Scan Report ---
Exam(s): CTA HEAD With Contrast IV Amt: 118 ML OPTIRAY 320 EXAM: CT Angiography Head With Intravenous Contrast CLINICAL HISTORY: Reason for exam: stroke like symptoms. TECHNIQUE: Axial computed tomographic angiography images of the head with intravenous contrast. CTDI is 11.45 mGy and DLP is 412.59 mGy-cm. Automated exposure control was utilized for the study. A dose lowering technique was utilized adhering to the principles of ALARA. MIP reconstructed images were created and reviewed. CONTRAST: Patient received 118 ML OPTIRAY 320 of IV contrast COMPARISON: No relevant prior studies available. FINDINGS: The dural venous sinuses are patent. Right internal carotid artery: No acute findings. Intracranial segment is patent with no significant stenosis. No aneurysm. Right anterior cerebral artery: Unremarkable. No occlusion or significant stenosis. No aneurysm. Right middle cerebral artery: Unremarkable. No occlusion or significant stenosis. No aneurysm. Right posterior cerebral artery: Unremarkable. No occlusion or significant stenosis. No aneurysm. Right vertebral artery: Unremarkable as visualized. Left internal carotid artery: No acute findings. Intracranial segment is patent with no significant stenosis. No aneurysm. Left anterior cerebral artery: Unremarkable. No occlusion or significant stenosis. No aneurysm. Left middle cerebral artery: Unremarkable. No occlusion or significant stenosis. No aneurysm. Left posterior cerebral artery: There is an 8% stenosis of the proximal left P1 segment with normal enhancement in the distal vessel.. No aneurysm. Left vertebral artery: Unremarkable as visualized. Basilar artery: Unremarkable. No occlusion or significant stenosis. No aneurysm. IMPRESSION: There is an 80% stenosis of the proximal left P1 segment with normal enhancement of the distal vessel. Electronically signed by: Karo Espinoza MD 01/21/24 00:32 AM
--- NOTE | 2024-01-21 00:37 | Magnetic Resonance Report ---
Exam(s): MRI HEAD W/WO Contrast IV Amt: 5cc gadavist EXAM: MR Head Without and With Intravenous Contrast CLINICAL HISTORY: Reason for exam: stroke like symptoms. TECHNIQUE: Magnetic resonance images of the head/brain without and with intravenous contrast in multiple planes. CONTRAST: Patient received 5cc gadavist of IV contrast COMPARISON: Prior head CT from January 20, 2024. FINDINGS: Brain: There is a tiny acute ischemic injury in the left capsule without evidence of hemorrhagic transformation. Advanced nonspecific white matter changes. No mass. No hemorrhage. The flow voids of the base of the brain are intact. No evidence of abnormal enhancement. Ventricles: Mild ventriculomegaly. Bones/joints: Unremarkable. No acute fracture. Hematoma over left posterior occiput. Sinuses: Chronic ethmoid sinusitis. No acute sinusitis. Mastoid air cells: Unremarkable as visualized. No mastoid effusion. Orbits: Bilateral lens replacements. IMPRESSION: There is a tiny acute ischemic injury within the left capsule without evidence of hemorrhagic transformation. Communications: Verify Receipt Electronically signed by: Karo Espinoza MD 01/21/24 00:37 AM
[2024-01-21 07:23] LABS: Hematocrit (blood only) 38.6 % (37.0-47.0); Mean Corpuscular Hemoglobin 30.2 pg (25.0-34.0); Mean Corpuscular Hgb Conc 33.7 g/dL (32.0-36.0); Mean Corpuscular Volume 89.8 fL (80.0-100.0); Platelet Count 318 K/uL (130-400); RDW Standard Deviation 38.6 fL (36.4-46.3); White Blood Count 7.45 K/ul (4.8-10.8)
[2024-01-21] MEDS: PERFLUTREN LIPID MICROSPHERE (DEFINITY) IV ONE (07:41)
[2024-01-21] MEDS: ASPIRIN 81 MG ECTAB PO SCH (07:56)
[2024-01-21] MEDS: lisinopril 2.5 MG TAB PO SCH (07:56)
[2024-01-21] MEDS: CLOPIDOGREL BISULFATE 75 MG TAB PO SCH (07:56)
[2024-01-21] MEDS: ROSUVASTATIN CALCIUM 5 MG TAB PO SCH (07:56)
[2024-01-21 07:59] LABS: BUN Creatinine Ratio 46.6 (10-20); Calcium 9.1 mg/dl (8.6-10.3); Chol HDL Ratio 2.9 (0-5); Creatinine Clr Calc Pharmacy 64.2 ml/min; Est GFR (African American) 101.6 ml/min; Est GFR (Non-African American) 87.7 ml/min; Potassium 3.6 mmol/L (3.5-5.1)
[2024-01-21 08:09] LABS: Estimated Average Glucose 105 mg/dl; Hemoglobin A1C 5.3 % (4.5-5.6)
[2024-01-21 08:14] LABS: Thyroid Stimulating Hormone 0.249 uIu/ml (0.300-4.500)
[2024-01-21 08:48] LABS: T4 Free Thyroxine 1.22 ng/dl (0.61-1.60)
[2024-01-21] MEDS ORDERED: ASPIRIN 81 MG ECTAB PO SCH ×2 (09:00)
--- NOTE | 2024-01-21 14:03 | CT Scan Report ---
CT SCAN OF THE BRAIN WITHOUT IV CONTRAST CLINICAL HISTORY: Stroke. COMPARISON STUDY: CT and MRI of the brain dated 01/20/2024. TECHNIQUE: Unenhanced axial CT scan of the brain is performed from the vertex to the skull base. A do se lowering technique was utilized adhering to the principles of ALARA. FINDINGS: Brain parenchyma: There is subtle loss of morris-white matter differentiation identified in the left ba iris ganglia at the site of a known lacunar infarct. There is age-related involutional change noting m oderate to advanced subcortical and periventricular microangiopathic disease. There is no hemorrhage, mass effect, or evidence of acute territorial ischemia by CT criteria. No extra-axial fluid collecti on is seen. Ventricles, sulci, cisterns: Prominent secondary to involutional change. Intracranial vasculature: There is atherosclerotic calcification of the cavernous carotid and vertebr al arteries. Calvarium: The skeletal structures are osteopenic. No depressed calvarial fracture is seen. Soft tissues: There is a left posterior parietal scalp hematoma at the vertex. Sinuses and mastoids: The visualized paranasal sinuses are clear. The mastoid air cells are well pneu matized. Cerumen is noted in the external auditory canals. Orbits: The bony orbits are grossly intact. There are bilateral ocular lens implants. There has been banding of the left ocular globe. IMPRESSION: 1. There is subtle loss of morris-white matter differentiation identified in the left basal ganglia at the site of a known lacunar infarct. 2. No hemorrhage is seen. ACT 112: Negative or not required by law. Electronically signed by: Justino Juarez M.D. 01/21/2024 2:01 PM
--- NOTE | 2024-01-21 14:31 | Hospitalist Progress Note ---
Date of Service January 21, 2024 Assessment & Plan (1) Acute CVA (cerebrovascular accident): Plan: Patient is 78 year old female with PMH HTN, dyslipidemia, memory problems presented to ER with c/o stroke like symptoms with slurred speech and RUE weakness yesterday. Evaluated in [facility] ER and had resolution of symptoms with reported unremarkable workup. Today reported episode slurred speech and difficulty ambulating Acute CVA --MRI brain:There is a tiny acute ischemic injury within the left capsule without evidence of hemorrhagic transformation. --Head CTA:There is an 80% stenosis of the proximal left P1 segment with normal enhancement of the distal vessel. --Neck CTA:Negative CTA neck. --CT Neck:There is no evidence of fracture or subluxation involving the cervical spine.Osteopenia and spondylotic change as above. --Repeat CT Head:There is subtle loss of morris-white matter differentiation identified in the left basal ganglia at the site of a known lacunar infarct. No hemorrhage is seen. --ECHO pending -- Lipid panel within normal limits. LDL 49 --Continue aspirin 81 mg, rosuvastatin. Added Plavix 75 mg daily --Fall and aspiration precautions -Continue PT/OT Needs ZIO monitor as outpatient Appreciate neurology input Patient had transient recurrence of slurred speech, right upper extremity weakness which lasted for about [address] showed no new changes. Informed neurology as well. Needs follow-up with neurology as outpatient Abnormal thyroid function test TSH 0.24, free T4 1.22 Will need repeat thyroid function test as outpatient (2) Abnormal urinalysis: Plan: UA: ?contaminant Rule out UTI Urine culture pending Empirically on IV Rocephin (3) HTN (hypertension): Plan: Recently started on lisinopril 2.5mg daily during rehab stay Hold lisinopril for now BP low Monitor BP (4) Dyslipidemia: Plan: Continue rosuvastatin (5) Memory problem: Plan: Reported ongoing memory problems. No formal testing reported per daughter Continue memantine, donepezil Frequent reorientation. Monitor for delirium (6) Recent fracture of hip: Plan: 01/06/24 reported fall and left proximal femur fracture. S/P repair by Dr Ford at [facility] Went to rehab at [facility] and discharged on 01/19/24. Walking with walker. Denies any recurrent falls Pelvis Xray: No acute fracture is clearly identified. Age indeterminant impacted subcapital fracture of the left proximal femur status post internal fixation. Fall precautions Denies narcotic pain med. Using Tylenol prn PT/OT eval DVT Px: Heparin SQ CODE STATUS DNI DNR as per my discussion with patient and patient's --POA Disposition Rehab as able Admission and Anticipated Discharge Date Admission Date: January 21, 2024 Subjective Patient is seen and examined at bedside Patient offers no new complaints today Speech seems to be back to baseline per family Right upper extremity weakness resolved as well Discussed with patient's family at bedside Patient denies any chest pain, dyspnea, nausea, vomiting, abdominal pain No issues with swallowing Review of Systems Review of Systems: All systems reviewed & are unremarkable except as noted in Subjective Physical Exam Physical Exam: Physical Exam: Vitals signs as noted above General Appearance:Thin, no apparent distress Head: normocephalic, Atraumatic Eyes: normal inspection, EOMI Neck: supple, Trachea midline Respiratory/Chest: Normal breath sounds, CTA, No accessory muscle use Cardiovascular: S1, S2, ? murmur Abdomen/GI:Soft, Non tender, Bowel sounds present Extremities/Musculoskeletal:normal inspection, no edema Neurologic/Psych:AAOX3, Mild RUE weakness, Some right sided Neglect Skin: normal color, warm, +Ecchymosis Results & Data Results & Data Vital Signs (Past 12 Hours) Vital Signs Temp Pulse Pulse Resp BP Pulse Ox O2 Del Method 01/21/24 11:20 36.5 C 103 H 18 103/74 96 Room Air 01/21/24 07:16 36.8 C 82 18 126/71 96 Room Air 01/21/24 07:14 83 01/21/24 03:35 37.0 C 89 18 149/86 H 96 Room Air Laboratory Results Short CBC 01/21/24 Range/Units 06:36 WBC 7.45 (4.8-10.8) K/ul Hgb 13.0 (12.0-16.0) g/dl Hct 38.6 (37.0-47.0) % Plt Count 318 (130-400) K/uL BMP 01/21/24 06:36 Sodium 140 Potassium 3.6 Chloride 106 Carbon Dioxide 21 BUN 27 H Creatinine 0.58 L Glucose 69 L Calcium 9.1 Urine 01/20/24 Range/Units 14:01 Urine Color Dark Yellow Urine Appearance Cloudy A (Clear) Urine pH 5.5 (4.5-7.5) Ur Specific [place] 1.032 H (1.000-1.030) Urine Protein 1+ H (Negative) Urine Glucose (UA) Negative (Negative)
--- NOTE | 2024-01-21 14:44 | Electrocardiogram Report ---
Test Reason : Blood Pressure : */* mmHG Vent. Rate : 64 BPM Atrial Rate : 64 BPM P-R Int : 156 ms QRS Dur : 90 ms QT Int : 424 ms P-R-T Axes : 54 40 117 degrees QTcB Int : 437 ms Normal sinus rhythm Abnormal ECG No previous ECGs available Confirmed by Casey Faria ([id number]) on 01/21/2024 2:43:49 PM Referred By: REFERRED SELF Confirmed By: Casey Faria
[2024-01-21] MEDS: POTASSIUM CHLORIDE CRTAB 20 MEQ TABCR PO ONE (20:20)
[2024-01-22 06:40] LABS: BUN Creatinine Ratio 44.7 (10-20); Calcium 9.5 mg/dl (8.6-10.3); Creatinine Clr Calc Pharmacy 48.9 ml/min; Est GFR (African American) 86.5 ml/min; Est GFR (Non-African American) 74.6 ml/min; Magnesium 2.3 mg/dl (1.7-2.4); Potassium 3.8 mmol/L (3.5-5.1)
[2024-01-22 07:39] VITALS: RESP 18; O2SAT 98
[2024-01-22] MEDS: cefTRIAXone SODIUM 2,000 MG/50 ML BAG IV SCH (09:40)
--- NOTE | 2024-01-22 09:57 | Electrocardiogram Report ---
Test Reason : Blood Pressure : */* mmHG Vent. Rate : 101 BPM Atrial Rate : 101 BPM P-R Int : 146 ms QRS Dur : 88 ms QT Int : 354 ms P-R-T Axes : 67 61 101 degrees QTcB Int : 459 ms Sinus tachycardia Minimal voltage criteria for LVH, may be normal variant Nonspecific ST and T wave abnormality Abnormal ECG When compared with ECG of 20-Jan-2024 12:03, Vent. rate has increased by 37 bpm Confirmed by Casey Faria ([id number]) on 01/22/2024 9:57:11 AM Referred By: REFERRED SELF Confirmed By: Casey Faria
--- NOTE | 2024-01-22 10:51 | Pharmacy Report ---
- Date of Service January 22, 2024 - Pharmacy CVA/TIA Medication Review Medications to Prevent Stroke handout has been added to the patients discharge packet. Antiplatelet(s) * Aspirin 81 mg PO daily * Clopidogrel 75 mg PO daily Cholesterol * Rosuvastatin 5 mg PO daily continued from prior to admission. Current LDL = 49 * High intensity statin deferred due to age >75, no evidence of atherosclerosis (cerebral, coronary, or PVD) DVT Prophylaxis * Heparin SQ Therapeutic Anticoagulation * No history of Afib/Aflutter noted Type 2 Diabetes * Patient does not have T2DM
--- NOTE | 2024-01-22 11:29 | Hospitalist Progress Note ---
Date of Service January 22, 2024 Assessment & Plan (1) Acute CVA (cerebrovascular accident): Plan: Patient is 78 year old female with PMH HTN, dyslipidemia, memory problems presented to ER with c/o stroke like symptoms with slurred speech and RUE weakness yesterday. Evaluated in [facility] ER and had resolution of symptoms with reported unremarkable workup. Today reported episode slurred speech and difficulty ambulating Acute CVA --MRI brain:There is a tiny acute ischemic injury within the left capsule without evidence of hemorrhagic transformation. --Head CTA:There is an 80% stenosis of the proximal left P1 segment with normal enhancement of the distal vessel. --Neck CTA:Negative CTA neck. --CT Neck:There is no evidence of fracture or subluxation involving the cervical spine.Osteopenia and spondylotic change as above. --Repeat CT Head:There is subtle loss of morris-white matter differentiation identified in the left basal ganglia at the site of a known lacunar infarct. No hemorrhage is seen. --ECHO: Mild concentric LVH. Left ventricular wall motion is normal. Left ventricle systolic function is normal. EF 60 to 65%. Right ventricle is normal in size and function. No significant valvular disease. -- Lipid panel within normal limits. LDL 49 --Continue aspirin 81 mg, rosuvastatin. Added Plavix 75 mg daily --Fall and aspiration precautions -Continue PT/OT Needs ZIO monitor as outpatient Appreciate neurology input Needs follow-up with neurology as outpatient Plan to discharge to a rehab facility as able Abnormal thyroid function test TSH 0.24, free T4 1.22 Will need repeat thyroid function test as outpatient (2) Abnormal urinalysis: Plan: UA: ?contaminant Ruled out UTI Urine culture:low counts Mixed probable skin jeff Empirically on IV Rocephin--received 3 doses Discontinue antibiotics (3) HTN (hypertension): Plan: Resume lisinopril 2.5 mg daily Monitor BP Adjust antihypertensives as needed (4) Dyslipidemia: Plan: Continue rosuvastatin (5) Memory problem: Plan: Reported ongoing memory problems. No formal testing reported per daughter Continue memantine, donepezil Frequent reorientation. Monitor for delirium (6) Recent fracture of hip: Plan: 01/06/24 reported fall and left proximal femur fracture. S/P repair by Dr Ford at [facility] Went to rehab at [facility] and discharged on 01/19/24. Walking with walker. Denies any recurrent falls Pelvis Xray: No acute fracture is clearly identified. Age indeterminant impacted subcapital fracture of the left proximal femur status post internal fixation. Fall precautions Denies narcotic pain med. Using Tylenol prn PT/OT eval DVT Px: Heparin SQ CODE STATUS DNI DNR as per my discussion with patient and patient's --POA Disposition Rehab when accepted Admission and Anticipated Discharge Date Admission Date: January 21, 2024 Subjective Patient is seen and examined at bedside Poor historian Subjectively office no new complaints Delirious overnight per RN Requiring more assistance with PT today Patient denies any chest pain, dyspnea, nausea, vomiting, abdominal pain Review of Systems Review of Systems: All systems reviewed & are unremarkable except as noted in Subjective Physical Exam Physical Exam: Physical Exam: Vitals signs as noted above General Appearance:Thin, no apparent distress Head: normocephalic, Atraumatic Eyes: normal inspection, EOMI Neck: supple, Trachea midline Respiratory/Chest: Normal breath sounds, CTA, No accessory muscle use Cardiovascular: S1, S2, ? murmur Abdomen/GI:Soft, Non tender, Bowel sounds present Extremities/Musculoskeletal:normal inspection, no edema Neurologic/Psych:AAO, Mild RUE weakness, Some right sided Neglect Skin: normal color, warm, +Ecchymosis Results & Data Results & Data Vital Signs (Past 12 Hours) Vital Signs Temp Pulse Pulse Resp BP Pulse Ox O2 Del Method 01/22/24 09:54 74 01/22/24 07:39 36.4 C L 83 18 148/81 H 98 Room Air 01/22/24 05:07 37.2 C 82 16 112/65 95 Room Air Laboratory Results [facility] 01/22/24 05:40 Sodium 139 Potassium 3.8 Chloride 104 Carbon Dioxide 24 BUN 34 H Creatinine 0.76 Glucose 95 Calcium 9.5
[2024-01-22 12:10] VITALS: PULSE 81; TEMP 97.9
[2024-01-22] MEDS ORDERED: STROKE PATIENT DISCHARGE STA (12:15)
--- NOTE | 2024-01-22 12:19 | Discharge Summary ---
Date of Service January 22, 2024 Admission HPI Per Admitting Provider Patient is 78 year old female with PMH HTN, dyslipidemia, memory problems presented to ER with c/o stroke like symptoms. History obtained from patient as well as patient's daughter. Patient's daughter states patient has been having ongoing memory issues but has refused formal neuropsych testing. PCP has started patient on memantine and donezepil for the last several months. Patient's daughter states 2 weeks ago patient was in her kitchen when had fall onto left hip and hit her posterior head. She was seen at [facility] for left femur fracture and had surgical repair. States was discharged from [facility] to [facility] for rehab. Reports was doing well in rehab and was ambulating with use of walker. She was discharged home yesterday. Daughter states initially patient seemed to be doing well at home and was ambulating throughout the house. States later in the day attempted to have her walk up stairs to second floor and patient was unable to do so so patient's daughter was trying to get hospital bed for first floor. Around 3 PM yesterday patient's daughter states patient was sleeping and when she awoke she seemed a little bit confused and had noted mumbling and slurred speech. She reports patient had right arm weakness. She called EMS and patient was taken to [facility]. Patient's daughter reports had workup there that she states was unremarkable for stroke. Patient was able to ambulate in ER and was discharged home. Reports that this morning upon awakening patient seemed to have some slurred speech again. States she had difficulty ambulating through her house and seem to have generalized bilateral lower extremity weakness. She brought patient to ER for further evaluation today. Daughter feels her speech is back to normal. Daughter reports patient seems to be at her baseline mental status currently. Reports she often mixes up the names of her daughters and did have increased confusion while hospitalized recently. States has noticed decreased appetite over past several months. Denies fever/chills, diaphoresis, N/V/D/C, LOVING, dizziness, syncope, vision changes, neck pain, CP, SOB, orthopnea, palpitations, cough, sore throat, rhinorrhea, abdominal pain, paresthesias, extremity weakness, extremity edema, rashes, dysuria, hematuria, urinary frequency. In ER no further slurred speech. Admission Exam Per Admitting Provider General: no acute distress, pleasant elderly female, WDWN Head: normocephalic, atraumatic Eyes: pupils approximately 2-3mm size bilaterally PERRL, EOM's intact, conjunctiva non-injected, anicteric ENT: normal inspection external ears, nose, mucous membranes moist Neck: supple, trachea midline, non-tender Lungs: clear, no respiratory distress, no wheezing/rhonchi/rales CV: RRR, no murmur, no JVD, no pretibial edema Abd: normal BS, soft, non-tender Ext: no cyanosis, no calf tenderness, able to flex and extend and internally and externally rotate bilateral hips without pain. no erythema noted left proximal leg Neuro: Alert, oriented to person, knows in hospital thinks its Dejuan, Knows daughter but says wrong daughter name (daughter reports this is baseline mixing up children's names) x 3, normal affect. Takes several prompting to perform CN testing. visual ellis appear intact. No nystagmus. facial sensation is intact and symmetric, face is strong and symmetric, hearing grossly intact, soft palate elevates symmetrically, no dysarthria, shoulder shrug intact, tongue is midline, normal movement, no fasciculations. 4/5 strength bilateral upper and lower extremities Skin: warm, dry, +yellow/green purple ecchymosis bilateral and posterior neck, +multiple yellow/purple ecchymosis left leg Principal Diagnosis Acute cerebrovascular accident Abnormal thyroid function test Hypertension Recent left proximal femur fracture Discharge Data Allergies Allergy/AdvReac Type Severity Reaction Status Date / Time No Known Allergies Allergy Unverified 01/20/24 14:30 Consultations 01/20/24 13:53 ED Decision to Admit Stat 01/20/24 16:03 Consult Neurology Routine Procedures Performed Laboratory Results WBC 7.45 K/ul (4.8-10.8) 01/21/24 06:36 RBC 4.30 M/uL (4.20-5.40) 01/21/24 06:36 Hgb 13.0 g/dl (12.0-16.0) 01/21/24 06:36 Hct 38.6 % (37.0-47.0) 01/21/24 06:36 MCV 89.8 fL (80.0-100.0) 01/21/24 06:36 MCH 30.2 pg (25.0-34.0) 01/21/24 06:36 MCHC 33.7 g/dL (32.0-36.0) 01/21/24 06:36 RDW Std Deviation 38.6 fL (36.4-46.3) 01/21/24 06:36 RDW Coeff of Mason 12.0 % (11.5-14.5) 01/21/24 06:36 Plt Count 318 K/uL (130-400) 01/21/24 06:36 MPV 10.0 fL (9.4-12.4) 01/21/24 06:36 Immature Gran % (Auto) 0.3 % 01/20/24 12:15 Neut % (Auto) 76.9 % 01/20/24 12:15 Lymph % (Auto) 14.3 % 01/20/24 12:15 [place] % (Auto) 6.5 % 01/20/24 12:15 Eos % (Auto) 1.3 % 01/20/24 12:15 Baso % (Auto) 0.7 % 01/20/24 12:15 Neut # (Auto) 7.63 K/uL (1.40-6.50) H 01/20/24 12:15 Lymph # (Auto) 1.42 K/uL (1.20-3.40) 01/20/24 12:15 [place] # (Auto) 0.65 K/uL (0.11-0.59) H 01/20/24 12:15 Eos # (Auto) 0.13 K/uL (0.00-0.50) 01/20/24 12:15 Baso # (Auto) 0.07 K/uL (0.00-0.20) 01/20/24 12:15 Immature Gran # (Auto) 0.03 K/uL (0.01-0.20) 01/20/24 12:15 PT 11.6 Seconds (9.0-12.0) 01/20/24 12:15 INR 1.1 (0.9-1.1) 01/20/24 12:15 APTT 25 Seconds (21-31) 01/20/24 12:15 PTT Ratio 0.9 01/20/24 12:15 VBG pH 7.36 (7.36-7.41) 01/20/24 12:15 VBG pCO2 48 mmHg (38-50) 01/20/24 12:15 VBG pO2 21 mmHg 01/20/24 12:15 VBG HCO3 27 mmol/L 01/20/24 12:15 VBG O2 Saturation < 60.0 % 01/20/24 12:15 VBG Base Excess 1.0 mEq/L 01/20/24 12:15 Sodium 139 mmol/L (136-145) 01/22/24 05:40 Potassium 3.8 mmol/L (3.5-5.1) 01/22/24 05:40 Chloride 104 mmol/L (98-107) 01/22/24 05:40 Carbon Dioxide 24 mmol/L (21-32) 01/22/24 05:40 Anion Gap 11 (3-11) 01/22/24 05:40 BUN 34 mg/dl (6-23) H 01/22/24 05:40 Creatinine 0.76 mg/dl (0.6-1.2) 01/22/24 05:40 Est Cr Clr Drug Dosing 48.9 ml/min 01/22/24 05:40 Est GFR ( Amer) 86.5 ml/min 01/22/24 05:40 Est GFR (Non-Af Amer) 74.6 ml/min 01/22/24 05:40 BUN/Creatinine Ratio 44.7 (10-20) H 01/22/24 05:40 Glucose 95 mg/dl (70-99(Fasting)) 01/22/24 05:40 Estimat Average Glucose 105 mg/dl 01/21/24 06:36 Hemoglobin A1c 5.3 % (4.5-5.6) 01/21/24 06:36 Lactate 1.1 mmol/L (0.4-2.0) 01/20/24 12:15 Calcium 9.5 mg/dl (8.6-10.3) 01/22/24 05:40 Magnesium 2.3 mg/dl (1.7-2.4) 01/22/24 05:40 Total Bilirubin 0.7 mg/dl (0.2-1.0) 01/20/24 12:15 Direct Bilirubin TNP 01/20/24 12:15 AST 25 U/L (13-39) 01/20/24 12:15 ALT 21 U/L (7-52) 01/20/24 12:15 Alkaline Phosphatase 114 U/L (34-104) H 01/20/24 12:15 Ammonia 19.0 umol/L (18-72) 01/20/24 12:15 Troponin I High Sens 11.3 pg/ml (0-14) 01/20/24 12:15 Total Protein 7.0 gm/dl (6.0-8.3) 01/20/24 12:15 Albumin 4.2 gm/dl (3.4-5.0) 01/20/24 12:15 Triglycerides 94 mg/dl (0-150) 01/21/24 06:36 Cholesterol 104 mg/dl (0-200) 01/21/24 06:36 LDL Cholesterol, Calc 49 mg/dl 01/21/24 06:36 VLDL Cholesterol, Calc 19 mg/dl (0-30) 01/21/24 06:36 HDL Cholesterol 36 mg/dl 01/21/24 06:36 Cholesterol/HDL Ratio 2.9 (0-5) 01/21/24 06:36 Procalcitonin 0.02 ng/ml (0-0.5) 01/20/24 12:15 TSH 0.249 uIu/ml (0.300-4.500) L 01/21/24 06:36 Free T4 1.22 ng/dl (0.61-1.60) 01/21/24 06:36 Urine Color Dark Yellow 01/20/24 14:01 Urine Appearance Cloudy (Clear) A 01/20/24 14:01 Urine pH 5.5 (4.5-7.5) 01/20/24 14:01 Ur Specific [place] 1.032 (1.000-1.030) H 01/20/24 14:01 Urine Protein 1+ (Negative) H 01/20/24 14:01 Urine Glucose (UA) Negative (Negative) 01/20/24 14:01 Urine Ketones 2+ (Negative) H 01/20/24 14:01 Urine Blood Negative (Negative) 01/20/24 14:01 Urine Nitrite Negative (Negative) 01/20/24 14:01 Urine Bilirubin 1+ (Negative) H 01/20/24 14:01 Urine Urobilinogen Negative (Negative) 01/20/24 14:01 Ur Leukocyte Esterase Trace (Negative) H 01/20/24 14:01 Urine WBC (Auto) 11-20 /hpf (0-5) H 01/20/24 14:01 Urine RBC (Auto) 0-2 /hpf (0-2) 01/20/24 14:01 U Hyaline Cast (Auto) 0-2 /lpf (0-2) 01/20/24 14:01 U Epithel Cells (Auto) >20 /hpf (0-2) H 01/20/24 14:01 Urine Bacteria (Auto) 3+ (None Seen) H 01/20/24 14:01 Impressions Chest X-Ray 01/20/24 12:09 XR chest 1V portable CLINICAL HISTORY: Sepsis TECHNIQUE: Single frontal radiograph of the chest was obtained. Comparison: None available at the time of this dictation. FINDINGS: No lines and tubes are seen. The cardiomediastinal silhouette is normal. The lungs are clear. No evidence of pleural effusion or pneumothorax. IMPRESSION: No acute chest disease. ACT 112: Negative or not required by law. Electronically signed by: Toby Marcial M.D. 01/20/2024 12:[address] 01/20/24 12:27 CT SCAN OF THE CERVICAL SPINE CLINICAL HISTORY: Trauma. Fall. COMPARISON STUDY: No priors. TECHNIQUE: CT scan of the cervical spine is performed from the skull base to the upper thoracic spine. Images are reviewed in the axial, sagittal, and coronal planes. IV contrast was not administered for this examination. A dose lowering technique was utilized adhering to the principles of ALARA. CT DOSE: 1026.59 mGy.cm FINDINGS: Skeletal structures: The skeletal structures are osteopenic. There is no evidence of fracture or subluxation involving the cervical spine. Vertebral body height is maintained. There is minimal anterolisthesis at C3-C4. Alignment is otherwise preserved. There is straightening of the cervical lordosis. Anterior osteophytes are seen throughout. The odontoid process and lateral masses are intact. The atlantoaxial articulation is preserved noting advanced productive degenerative change. The spinous processes appear intact. There is moderate multilevel cervical spondylosis. Uncovertebral and facet arthropathy contribute to neural foraminal narrowing at several levels. Intervertebral discs: There is moderate disc space narrowing at C4-C5, C5-C6, and C6-C7. Central canal: Posterior disc osteophyte complexes at C4-C5, C5-C6, and C6-C7 may contribute to acquired compromising the central canal. Soft tissues: The prevertebral and paraspinous soft tissues are within normal limits. There is atherosclerotic calcification of the carotid bulbs. Calvarium: The visualized calvarium at the skull base appears intact. Brain parenchyma: Partially visualized brain parenchyma at the skull base is within normal limits. Sinuses and mastoids: The visualized paranasal sinuses are clear. The mastoid air cells are well pneumatized. Cerumen is noted in the external auditory canals. Lung apices: Clear as visualized. IMPRESSION: 1. There is no evidence of fracture or subluxation involving the cervical spine. 2. Osteopenia and spondylotic change as above. ACT 112: Negative or not required by law. Electronically signed by: Justino Juarez M.D. 01/20/2024 1:04 PM Pelvis X-Ray 01/20/24 12:27 SINGLE VIEW PELVIS CLINICAL HISTORY: Fall. Left hip pain. FINDINGS: An AP, portable, supine view of the pelvis is obtained. No prior studies are available for comparison at the time of dictation. The skeletal structures are osteopenic. No acute fracture is clearly identified. There is an age indeterminant impacted subcapital fracture of the left proximal femur which is transfixed by 3 cortical lag screws. The right proximal femur and bony pelvis appear intact. Mild arthritic change and joint space narrowing is seen in the hips. Sclerotic change is seen in the sacroiliac joints and pubic symphysis. The overlying soft tissues are normal as visualized. IMPRESSION: 1. No acute fracture is clearly identified. 2. Age indeterminant impacted subcapital fracture of the left proximal femur status post internal fixation. Correlate clinically. Electronically signed by: Justino Juarez M.D. 01/20/2024 12:49 PM Head CTA 01/20/24 14:44 Exam(s): CTA HEAD With Contrast IV Amt: 118 ML OPTIRAY 320 EXAM: CT Angiography Head With Intravenous Contrast CLINICAL HISTORY: Reason for exam: stroke like symptoms. TECHNIQUE: Axial computed tomographic angiography images of the head with intravenous contrast. CTDI is 11.45 mGy and DLP is 412.59 mGy-cm. Automated exposure control was utilized for the study. A dose lowering technique was utilized adhering to the principles of ALARA. MIP reconstructed images were created and reviewed. CONTRAST: Patient received 118 ML OPTIRAY 320 of IV contrast COMPARISON: No relevant prior studies available. FINDINGS: The dural venous sinuses are patent. Right internal carotid artery: No acute findings. Intracranial segment is patent with no significant stenosis. No aneurysm. Right anterior cerebral artery: Unremarkable. No occlusion or significant stenosis. No aneurysm. Right middle cerebral artery: Unremarkable. No occlusion or significant stenosis. No aneurysm. Right posterior cerebral artery: Unremarkable. No occlusion or significant stenosis. No aneurysm. Right vertebral artery: Unremarkable as visualized. Left internal carotid artery: No acute findings. Intracranial segment is patent with no significant stenosis. No aneurysm. Left anterior cerebral artery: Unremarkable. No occlusion or significant stenosis. No aneurysm. Left middle cerebral artery: Unremarkable. No occlusion or significant stenosis. No aneurysm. Left posterior cerebral artery: There is an 8% stenosis of the proximal left P1 segment with normal enhancement in the distal vessel.. No aneurysm. Left vertebral artery: Unremarkable as visualized. Basilar artery: Unremarkable. No occlusion or significant stenosis. No aneurysm. IMPRESSION: There is an 80% stenosis of the proximal left P1 segment with normal enhancement of the distal vessel. Electronically signed by: Karo Espinoza MD 01/21/24 00:32 AM Neck CTA 01/20/24 14:44 Exam(s): CTA NECK With Contrast IV Amt: 118 ML OPTIRAY 320 EXAM: CT Angiography Neck With Intravenous Contrast CLINICAL HISTORY: Reason for exam: stroke like symptoms. TECHNIQUE: Routine carotid CT angiography protocol was performed with intravenous contrast. NASCET criteria using the distal ICAs for comparison were used for evaluation of stenoses. CTDI is 11.45 mGy and DLP is 412.59 mGy-cm. Automated exposure control was utilized for the study. A dose lowering technique was utilized adhering to the principles of ALARA. MIP reconstructed images were created and reviewed. CONTRAST: Patient received 118 ML OPTIRAY 320 of IV contrast COMPARISON: None. FINDINGS: VASCULATURE: Right common carotid artery: Unremarkable. No occlusion or significant stenosis. No dissection. Right internal carotid artery: Unremarkable. Extracranial segment is patent with no occlusion or significant stenosis. No dissection. Right external carotid artery: Unremarkable. No occlusion. Right vertebral artery: Unremarkable. No occlusion or significant stenosis. No dissection. Left common carotid artery: Unremarkable. No occlusion or significant stenosis. No dissection. Left internal carotid artery: Unremarkable. Extracranial segment is patent with no occlusion or significant stenosis. No dissection. Left external carotid artery: Unremarkable. No occlusion. Left vertebral artery: Unremarkable. No occlusion or significant stenosis. No dissection. NECK: Bones/joints: Unremarkable. No acute fracture. Soft tissues: Bilateral thyroid nodules. Lung apices: Clear. CAROTID STENOSIS REFERENCE USING NASCET CRITERIA: % ICA stenosis = (1 - narrowest ICA diameter/diameter of distal cervical ICA) x 100. Mild - <50% stenosis. Moderate - 50-69% stenosis. Severe - 70-94% stenosis. Near occlusion - 95-99% stenosis. Occluded - 100% stenosis. IMPRESSION: Negative CTA neck. Electronically signed by: Karo Espinoza MD 01/21/24 00:27 AM Brain MRI 01/20/24 14:45 CR Exam(s): MRI HEAD W/WO Contrast IV Amt: 5cc gadavist EXAM: MR Head Without and With Intravenous Contrast CLINICAL HISTORY: Reason for exam: stroke like symptoms. TECHNIQUE: Magnetic resonance images of the head/brain without and with intravenous contrast in multiple planes. CONTRAST: Patient received 5cc gadavist of IV contrast COMPARISON: Prior head CT from January 20, 2024. FINDINGS: Brain: There is a tiny acute ischemic injury in the left capsule without evidence of hemorrhagic transformation. Advanced nonspecific white matter changes. No mass. No hemorrhage. The flow voids of the base of the brain are intact. No evidence of abnormal enhancement. Ventricles: Mild ventriculomegaly. Bones/joints: Unremarkable. No acute fracture. Hematoma over left posterior occiput. Sinuses: Chronic ethmoid sinusitis. No acute sinusitis. Mastoid air cells: Unremarkable as visualized. No mastoid effusion. Orbits: Bilateral lens replacements. IMPRESSION: There is a tiny acute ischemic injury within the left capsule without evidence of hemorrhagic transformation. Communications: Verify Receipt Electronically signed by: Karo Espinoza MD 01/21/24 00:[address] 01/21/24 12:28 CT SCAN OF THE BRAIN WITHOUT IV CONTRAST CLINICAL HISTORY: Stroke. COMPARISON STUDY: CT and MRI of the brain dated 01/20/2024. TECHNIQUE: Unenhanced axial CT scan of the brain is performed from the vertex to the skull base. A dose lowering technique was utilized adhering to the principles of ALARA. FINDINGS: Brain parenchyma: There is subtle loss of morris-white matter differentiation identified in the left basal ganglia at the site of a known lacunar infarct. There is age-related involutional change noting moderate to advanced subcortical and periventricular microangiopathic disease. There is no hemorrhage, mass effect, or evidence of acute territorial ischemia by CT criteria. No extra-axial fluid collection is seen. Ventricles, sulci, cisterns: Prominent secondary to involutional change. Intracranial vasculature: There is atherosclerotic calcification of the cavernous carotid and vertebral arteries. Calvarium: The skeletal structures are osteopenic. No depressed calvarial fracture is seen. Soft tissues: There is a left posterior parietal scalp hematoma at the vertex. Sinuses and mastoids: The visualized paranasal sinuses are clear. The mastoid air cells are well pneumatized. Cerumen is noted in the external auditory canals. Orbits: The bony orbits are grossly intact. There are bilateral ocular lens implants. There has been banding of the left ocular globe. IMPRESSION: 1. There is subtle loss of morris-white matter differentiation identified in the left basal ganglia at the site of a known lacunar infarct. 2. No hemorrhage is seen. ACT 112: Negative or not required by law. Electronically signed by: Justino Juarez M.D. 01/21/2024 2:01 PM Ordered Studies 01/20/24 12:10 CT head/brain wo con Stat 01/20/24 12:27 CT cervical spine wo con Stat 01/20/24 14:44 CTA head w con [CT angio head w con] Stat CTA neck with con [CT angio neck with con] Stat 01/20/24 14:45 MR brain wo/w con Routine 01/21/24 12:28 CT head/brain wo con Urgent Hospital Course (1) Acute CVA (cerebrovascular accident): Patient is 78 year old female with PMH HTN, dyslipidemia, memory problems presented to ER with c/o stroke like symptoms with slurred speech and RUE weakness yesterday. Evaluated in [facility] ER and had resolution of symptoms with reported unremarkable workup. Today reported episode slurred speech and difficulty ambulating Acute CVA --MRI brain:There is a tiny acute ischemic injury within the left capsule without evidence of hemorrhagic transformation. --Head CTA:There is an 80% stenosis of the proximal left P1 segment with normal enhancement of the distal vessel. --Neck CTA:Negative CTA neck. --CT Neck:There is no evidence of fracture or subluxation involving the cervical spine.Osteopenia and spondylotic change as above. --Repeat CT Head:There is subtle loss of morris-white matter differentiation identified in the left basal ganglia at the site of a known lacunar infarct. No hemorrhage is seen. --ECHO: Mild concentric LVH. Left ventricular wall motion is normal. Left ventricle systolic function is normal. EF 60 to 65%. Right ventricle is normal in size and function. No significant valvular disease. -- Lipid panel within normal limits. LDL 49 --Continue aspirin 81 mg, rosuvastatin. Added Plavix 75 mg daily --Fall and aspiration precautions -Continue PT/OT Needs ZIO monitor as outpatient Appreciate neurology input Needs follow-up with neurology as outpatient Plan to discharge to a rehab facility as able Abnormal thyroid function test TSH 0.24, free T4 1.22 Will need repeat thyroid function test as outpatient (2) Abnormal urinalysis: UA: ?contaminant Ruled out UTI Urine culture:low counts Mixed probable skin jeff Empirically on IV Rocephin--received 3 doses Discontinue antibiotics (3) HTN (hypertension): Resume lisinopril 2.5 mg daily Monitor BP Adjust antihypertensives as needed (4) Dyslipidemia: Continue rosuvastatin (5) Memory problem: Reported ongoing memory problems. No formal testing reported per daughter Continue memantine, donepezil Frequent reorientation. Monitor for delirium (6) Recent fracture of hip: 01/06/24 reported fall and left proximal femur fracture. S/P repair by Dr Ford at [facility] Went to rehab at [facility] and discharged on 01/19/24. Walking with walker. Denies any recurrent falls Pelvis Xray: No acute fracture is clearly identified. Age indeterminant impacted subcapital fracture of the left proximal femur status post internal fixation. Fall precautions Denies narcotic pain med. Using Tylenol prn PT/OT eval DVT Px: Heparin SQ CODE STATUS DNI DNR as per my discussion with patient and patient's --POA Disposition Rehab when accepted Total Time Total Time Spent Total Time Spent (In Minutes): 54 minutes Discharge Plan Discharge Items Patient Disposition: Transfer Inpatient Rehab Fac Reason For Visit: STROKE LIKE SYMPTOMS Discharge Diagnosis: Acute cerebrovascular accident Abnormal thyroid function test Hypertension Recent left proximal femur fracture Activity: Per Instructions section Exercise/Sports: Gradually increase as tolerated Non-emergency contact: Primary Care Provider, Surgeon and Neurologist Call non-emergency contact if: you have any medication questions, your symptoms worsen, your pain is concerning for you and you have a fever Follow-up/Referrals: Kieran Mendoza DO [Primary Care Provider] - Diet: Heart Healthy Addtl Attending Provider Instructions: Follow-up with your primary care physician Dr. Mendoza in 1 week upon discharge from rehab facility Follow-up with your neurologist Dr.El Monaco in 2-3 weeks Follow-up with your orthopedic surgeon as previously recommended for further evaluation of hip fracture --You are incidentally noted to have abnormal TSH. Obtain thyroid function test in 3 to 4 weeks and discussed with your physician for further instructions. -- Your neurologist recommended ZIO monitor to rule out arrhythmias as outpatient -- Continue aspirin 81 mg and Plavix 75 mg daily for 3 weeks. Further instructions as per your neurologist. -- Continue aspiration precautions, speech therapy while at rehab. -- Monitor blood pressure regularly as advised. Discuss with your physician for further adjustment of medications as needed. Seek immediate medical attention if your symptoms reoccur or worsen Please take all medications as instructed on discharge list below. Please call if you have any questions or problems. You can reach a [facility] hospitalist on duty at [facility] 24 hours a day by calling [phone] Risk Factors for Stroke: You can reduce your chances of stroke by working with your medical provider to adopt a healthy lifestyle. Some specific ways to lower your chance of stroke are: * If you are a smoker, now is the time to stop smoking cigarettes * If you are diabetic, improve the control of your blood sugars * Avoid excessive amounts of alcohol * Control high blood pressure * Lose weight if you are overweight * Be sure to lead an active lifestyle * Eat a healthy diet low in salt, cholesterol and fat You should know about other risk factors for stroke that you are unable to control. These include: * Age 55 years or older * Male gender * Certain racial groups: , or / * Family History of Stroke, Mini stroke or Heart Attack * Sickle Cell Disease Follow Up: It is important for you to keep your follow up appointments with your medical provider. Who to Call and When: Medical Emergencies: Call 911 immediately if you experience any of the following warning signs and symptoms of Stroke: * Sudden numbness or weakness of the face, arm or leg, especially on one side of the body * Sudden confusion, trouble speaking or understanding * Sudden trouble seeing in one or both eyes * Sudden trouble walking, dizziness, loss of balance or coordination * Sudden severe headache with no cause Do not delay calling 911 if you experience any warning signs or symptoms of a stroke. Delay in seeking medical attention may affect what treatments can be given to you. . Pending Studies at Discharge: No Stand-Alone Forms: [facility], Medications to Prevent Stroke Skilled Items Patient informed of condition?: Yes DNR: Yes Discharge Level of Care: Acute rehab Communicable Disease: No Discharge Prognosis: Stable Lines: None Urinary Catheter: No Medications and DC Order Prescriptions: New clopidogrel 75 mg Tablet 75 mg PO QAM Qty: 30 0RF Continued donepezil 5 mg tablet 5 mg PO HS lisinopril 5 mg tablet 2.5 mg PO DAILY rosuvastatin 5 mg tablet 5 mg PO DAILY memantine 10 mg tablet 10 mg PO BID acetaminophen [Tylenol Ex Str Rapid Release] 500 mg Tablet 500 mg PO Q6H Changed aspirin 81 mg Tablet,Delayed Release (Dr/Ec) 81 mg PO DAILY Qty: 0 0RF Rx Instructions: 4 weeks s/p hip fx Discontinued cefdinir 300 mg capsule 300 mg PO BID Rx Instructions: Not started yet. Rx 01/19/24 Discharge Orders: Discharge Order (Routine); Ordered 01/22/24 Ordered By: Rusty Marvin Admission Data Admit Date/Time: 01/21/24 13:56 Attending Provider: Rusty Marvin Admit Provider: Con Cisneros Primary Care Provider: Kieran Mendoza Other Providers: Kadie Villela; Jorge Shultz; [facility]
[2024-01-22 14:28] VITALS: BP 143/54
== END 2024-01-22 17:00 | DRG 65 ==
LOC: ED 11:48 → 2W 11:48 → SUATTDRO 14:23 → 2W 14:43